=== PATIENT | male | born 1960 | race Caucasian/White ===

== ENCOUNTER 2025-01-09 05:39 | Outpatient (REF) | payer MEDICARE, SELFPAY ==
[2025-01-09 05:45] LABS: MANUAL DIFF FLAG NO
--- OUTSIDE RECORDS SUMMARY | 2025-01-09 05:46 | XMS_ITS | Encounter Summary ---
Author Organization [employer] Address [address] [facility] 7t [place] [address] Care Team Providers Care Inspector Final Assembly Conveyor Line Name Role Phone Unavailable Primary Care Provider Unavailabl e Reason for Visit * Reason Onset Date Comments medication 11/19/2022 Encounter Details Date Type Department Care Team (Late st Contact Info) Description 11/19/2022 Telephone [facility] [address] [place] [address] Eduard Maya, NICOLAS [address] [place] [address] medication Social History Tobacco Use Types Packs/Day Years Used Date Smoking Tobacco: Never Smokeless Tobacco: Never Sex and Gender Information Value Date Recorded Sex Assigned at Male 01/18/2022 10:23 AM EDT Legal Sex Male 10:23 AM EDT Gender Identity Male 01/18/2022 10:23 AM EDT Sexual Orientation Maxwell 11/18/2022 11 :57 AM EDT documented as of this encounter Miscellaneous Notes * Telephone Encounter - Blanca Marroquin - 11/19/2022 11:40 AM EDT Patient was seen yesterday 11/[address] [place] Mack is not in today. The script for the toothpaste cannot be filled at the pharmacy patient had chosen at [address] That is a specialtypharmacy. He would like the script to be re sent to [facility] pharmacy. Can you pls help? documented in this encounter Plan of Treatment Not on file documented as of this encounter Visit Diagnoses Not on filedocumented in this encounter
--- OUTSIDE RECORDS SUMMARY | 2025-01-09 05:46 | XMS_ITS | Encounter Summary ---
Author Organization [email or web address] Address 75 [facility] 7t [place] [address] Care Team Providers Care Gynecologist Name Role Phone Unavailable Primary Care Provider Unavailabl e Encounter Details Date Type Department Care Team (Latest Contact Info) Description 10/09/2020 Abstract [facility] CONVERSIONS Dental, Provider, DDS Social History Tobacco Use Types Packs/Day Years Used Date Smoking Tobacco: Never Assessed Sex and Gender Information Value Date Recorded Sex Assigned at Male 01/18/2022 10:23 AM EDT Legal Sex Male 10:23 AM EDT Gender Identity Male 01/18/2022 10:23 AM EDT Sexual Orientation Maxwell 11/18/2022 11 :57 AM EDT documented as of this encounter Plan of Treatment Not on file documented as of this encounter Visit Diagnoses Not on filedocumented in this encounter
--- OUTSIDE RECORDS SUMMARY | 2025-01-09 05:46 | XMS_ITS | Encounter Summary ---
Author Organization [employer] Address [address] [facility] [address] 7t [place] [address] Care Team Providers Care Turkey Pinner Name Role Phone Unavailable Primary Care Provider Unavailabl e Encounter Details Date Type Department Care Team (Latest Contact Info) Description 06/13/[address] [facility] CONVERSIONS Dental, Provider, DDS Social History [...]
--- OUTSIDE RECORDS SUMMARY | 2025-01-09 05:46 | XMS_ITS | Clinical Summary ---
Author Organization [employer] Address 75 [facility] 7t [place] [address] Care Team Providers Care Community Service Worker Name Role Phone Unavailable Primary Care Provider Unavailabl e Allergies Active Allergy Reactions Criticality Noted Date Comments Testosterone 11/18/2022 Patch Medications ARIPiprazole (Abilify) 10 MG tablet 3 Active aspirin 81 MG EC tablet Take 1 tablet by mouth in the morning. Active atorvastatin (Lipitor) 40 MG tablet 3 Active buPROPion XL (Wellbutrin XL) 300 MG 24 hr tablet 3 Active clotrimazole (Lotrimin) 1 % cream 3 Active Diclofenac Sodium 1 % gel 3 Active Synjardy 12.5-1000 MG 3 Active Lantus SoloStar 100 UNIT/ML pen 3 Active lisinopril 2.5 MG tablet 3 Active LORazepam (Ativan) 0.5 MG tablet 3 Active metoprolol tartrate (Lopressor) 25 MG tablet 3 Active Multiple Vitamins-Minera ls (Vitamin D3 Complete) tablet Active testosterone cypionate (Depo-Testoster one) 200 MG/ML injection 3 Active Mounjaro 2.5 MG/0.5ML solution pen-injector 3 Active venlafaxine XR (Effexor XR) 150 MG 24 hr capsule 3 Active zolpidem (Ambien) 10 MG tablet 3 Active Sodium Fluoride (PreviDent 5000 Booster Plus) 1.1 % paste Use pea size amount on toothbrush at night before bedtime. Do not rinse just spit out and no eating. 112 g 3 3 Active Sodium Fluoride (PreviDent 5000 Booster Plus) 1.1 % paste Use pea sized amount on the tooth brush, brush thoroughly twice daily. Spit, do not rinse. 112 g 3 3 Active Sodium Fluoride (PreviDent 5000 Booster Plus) 1.1 % paste [place] with pea sized amount of tothpaste, spit but don't rinse out. 112 g 3 4 Active omeprazole (PriLOSEC) [address] capsule Take 40 mg by mouth. 5 Active tamsulosin (Flomax) 0.4 MG 24 hr capsule 5 Active hydrOXYzine HCl (Atarax) 25 MG tablet Take 25 mg by mouth. 5 Active methylphenidate ER (Metadate ER) 20 MG CR tablet Take 20 mg by mouth. 5 Active finasteride (Proscar) 5 MG tablet Take 5 mg by mouth. 5 Active Active Problems Problem Noted Date Diagnosed Date Atherosclerosis of coronary artery 11/15/2024 Depressive disorder 11/15/2024 Overview (11/15/2024): care plan 11/10/2012 Class 1 obesity 11/15/2024 Benign prostatic hyperplasia 11/15/2024 Atrial fibrillation (CMS/HCC) 11/15/2024 Dysphagia 11/15/2024 Eczema 11/15/2024 Extrapyramidal symptom 11/15/2024 Follow-up for resolved condition 11/15/2024 Gynecomastia 11/15/2024 Insomnia 11/15/2024 Oral herpes simplex infection 11/15/2024 Primary hypogonadism in male 11/15/2024 Sleep apnea 11/15/2024 Tubular adenoma of colon 11/15/2024 Type 2 diabetes mellitus 11/15/2024 Severe obesity (BMI 35.0-39.9) with comorbidity (CMS/HCC) 11/15/2024 Intertrigo 03/27/2024 Heart murmur 04/13/2013 Heart disease 04/13/2013 Lump or mass in breast 03/03/2010 Anemia 08/12/2006 Encounters Date Type Department Care Team Description 11/15/2024 2:00 PM EDT Office Visit [facility] D[facility] [address] [place] [id number] Isi Kang BDS Dental caries (Primary Dx) from Last 3 Months Social History Tobacco Use Types Packs/Day Years Used Date Smoking Tobacco: Never Smokeless Tobacco: Never Tobacco Cessation:Counseling Given: Not Answered Sex and Gender Information Value Date Recorded Sex Assigned at Male 01/18/2022 10:23 AM EDT Legal Sex Male 10:23 AM EDT Gender Identity Male 01/18/2022 10:23 AM EDT Sexual Orientation Maxwell 11/18/2022 11 :57 AM EDT Last Filed Vital Signs Vital Sign Reading Time Taken Comments Blood Pressure 124/70 11/15/2024 2:07 PM EDT Pulse 66 11/15/2024 2:07 PM EDT Temperature - - Respiratory Rate - - Oxygen Saturation - - Inhaled Oxygen Concentration - - Weight - - Height - - Body Mass Index - - Plan of Treatment Health Maintenance Due Date Last Done Comments CT Colonography 1959 Colonoscopy 1959 Colorectal Cancer Screening 1959 Depression Screening 1959 Diabetes: Hemoglobin A1C 1959 FIT DNA/Cologuard 1959 FIT 1959 FOBT 1959 Lipid Panel 1959 SDOH Screening 1959 Sigmoidoscopy 1959 Diabetes: Foot Exam 10/17/1969 Eye Exam 10/17/1969 Alcohol/Substance Use Screening 1971 Hepatitis C Screening 10/17/1977 Diabetes: Urine Protein Screening 10/17/1978 DTaP/Tdap/Td Vaccines (1 - Tdap) 10/27/2018 10/26/2018 RSV Patients and Patients Aged 60 years or older (1 - Risk 60-74 years 1-dose series) 2019 Dental X-Ray: Full Mouth 12/19/2023 12/17/2020, 05/0 06/2016 Dental Oral Exam 08/29/2024 02/28/2024, , 10/09/2020, Additional history exists Dental Prophylaxis 08/29/2024 02/28/2024, 0 06/20/2023, 11/18/2022, Additional history exists COVID-19 Vaccine ( season) 2024 12/06/2023, 03/29/2023, 12/09/2021, Additional history exists Influenza Vaccine (#1) 2024 4, 02/17/2023, 02/17/2023, Additional history exists Dental X-Ray: Bitewings 02/28/2025 02/28/20 24, 11/18/2022, 10/09/2020, Additional history exists Tobacco Screening 11/15/2025 11/15/2024 Pneumococcal Vaccine: 50+ Years (3 of 3 - PCV20 or PCV21) 04/08/2027 04/08/2022, 01/30/2008 Zoster Vaccines Completed 09/01/2021, 01/20, 06/13/2012 HIB Vaccines Aged Out No longer eligi ble based on patient's age to complete this topic HPV Vaccines Aged Out No longer eligi ble based on patient's age to complete this topic Hepatitis A Vaccines Aged Out No long er eligible based on patient's age to complete this topic Hepatitis B Vaccines Aged Out No long er eligible based on patient's age to complete this topic IPV Vaccines Aged Out No longer eligi ble based on patient's age to complete this topic Meningococcal B Vaccine Aged Out No l onger eligible based on patient's age to complete this topic Meningococcal Vaccine Aged Out No sharon chapin eligible based on patient's age to complete this topic RSV under 20 months Aged Out No longe r eligible based on patient's age to complete this topic Rotavirus Vaccines Aged Out No longer eligible based on patient's age to complete this topic Procedures Procedure Name Priority Date/Time Associated Diagnosis Comments 15 ML(V) RESIN-BASED COMPOSITE - 2 SURF, POSTERIOR Routine 11/15/2024 2:00 PM EDT PROPHYLAXIS - ADULT Routine 02/28/2024 1 :00 PM EST BITEWINGS - 4 RADIOGRAPHIC IMAGES Routine 02/28/2024 1:00 PM EST PERIODIC ORAL EVALUATION - ESTABLISHED PATIENT Routine 02/28/2024 1:00 PM EST PANORAMIC RADIOGRAPHIC IMAGE Routine 12/17/2020 12:00 AM EDT from Last 3 Months or Most Recently Relevant to Health Maintenance Insurance DENTAL - [facility]
--- OUTSIDE RECORDS SUMMARY | 2025-01-09 05:46 | XMS_ITS | Encounter Summary ---
Author Organization [employer] Address [address] [facility] 7t [place] [address] Care Team Providers Care Safety Equipment Tester Name Role Phone Unavailable Primary Care Provider Unavailabl e Encounter Details Date Type Department Care Team (Late st Contact Info) Description 12/24/2022 Abstract [facility] ADULT DENTAL [address] [place] [address] Jd Jimenez, NICOLAS [address] [place] [address] Social History Tobacco Use Types Packs/Day Years [...]
--- OUTSIDE RECORDS SUMMARY | 2025-01-09 05:46 | XMS_ITS | Encounter Summary ---
Author Organization [employer] Address [address] [facility] 7t [place] [address] Care Team Providers Care Fireworks Assembly Supervisor Name Role Phone Unavailable Primary Care Provider Unavailabl e Encounter Details Date Type Department Care Team (Late st Contact Info) Description 01/21/2023 Abstract [facility]ULT D[facility] [address] [place] [address] Eduard Maya, DDS [address] [facility] [place] [address] Social History Tobacco Use Types Packs/Day Years [...]
--- OUTSIDE RECORDS SUMMARY | 2025-01-09 05:46 | XMS_ITS | Encounter Summary ---
Author Organization [employer] Address [address] [facility] 7t [place] [address] Care Team Providers Care Utilities Equipment Repairer Name Role Phone Unavailable Primary Care Provider Unavailabl e Reason for Visit * Reason Onset Date Comments appt slip 01/11/2024 Encounter Details Date Type Department Care Team ([facility] st Contact Info) Description 01/11/2024 Telephone [facility] DENTAL [address] [place], [place] [phone] Chandni Castellano [address] [place], [place] [phone] appt slip Social History Tobacco Use Types Packs/Day Years [...] * Telephone Encounter - Blanca Marroquin - 01/11/2024 11:59 AM EDT Patient would like appt slip mailed to his home for appt scheduled. documented in this encounter Plan of Treatment Not on file documented as of this encounter Visit Diagnoses Not on filedocumented in this encounter
[2025-01-09 06:26] LABS: Hematocrit 33.8 % (42.0-52.0); Hemoglobin 11.2 g/dl (14.0-18.0); Imm Gran Abs Auto 0.02 X10*3/uL (0.00-0.03); Imm Gran Pct Auto 0.3 % (0.0-0.4); Lymphocytes Absolute Auto 2.0 X10*3/uL (1.2-4.9); Mean Corpuscular HGB Conc 33.1 g/dl (31.0-36.0); Mean Corpuscular Hemoglobin 30.7 pg (27.0-33.0); Mean Corpuscular Volume 92.6 fL (80.0-98.0); NRBC Abs Auto 0.000 X10*3/uL (0.0-0.012); NRBC Pct Auto 0.0 /100WBC (0.0-0.2); Platelet Count 220 X10*3/uL (160-400); Red Blood Count 3.65 X10*6/uL (4.60-5.80); White Blood Count 7.5 X10*3/uL (4.8-10.8)
[2025-01-09 06:33] LABS: Hemoglobin A1C 114.5474 umol/L
[2025-01-09 06:36] LABS: Alanine Aminotransferase 36 U/L (0-40); Albumin Level 3.7 g/dL (3.5-5.0); Alkaline Phosphatase 62 U/L (39-117); Anion Gap 13 (12-20); Aspartate Amino Transferase 42 U/L (5-37); Blood Urea Nitrogen 15 mg/dL (9-16); Calcium 8.9 mg/dL (8.4-10.2); Carbon Dioxide 22 mmol/L (22-29); Chloride 107 mmol/L (96-108); Estimated Glomerular Filt Rate > 60; Potassium 3.9 mmol/L (3.3-5.1); Sodium 138 mmol/L (135-145); Total Protein 6.8 g/dL (6.5-8.0)
== END 2025-01-09 05:40 | disposition home or self-care (01) ==
LOC: HO.MMNH1L 05:39
PROVIDERS: Visit Provider Physician Assistant Medical
DX: Z13.0 Encounter for screening for diseases of the blood and blood-forming organs and certain disorders involving the immune mechanism (principal); Z13.1 Encounter for screening for diabetes mellitus
CPT/HCPCS: 36415; 80053; 83036; 85025

== ENCOUNTER 2025-01-11 14:20 | Outpatient (REF) | payer MEDICARE, SELFPAY ==
[2025-01-11 14:28] LABS: Appearance Urine Clear; Glucose Urine UA 500 mg/dL (Negative); PH 5.5 (5.0-9.0); Specific Gravity - Urine 1.025 (1.005-1.025); UMIC TRIGGER UA YES
--- OUTSIDE RECORDS SUMMARY | 2025-01-11 16:18 | XMS_ITS | Encounter Summary ---
Author Organization [employer] Address [address] [facility] [address]t [place] [address] Care Team Providers Care Hot Baller Name Role Phone Unavailable Primary Care Provider Unavailabl e Encounter Details Date Type Department Care Team (Latest Contact Info) Description 10/09/2020 Abstract [facility] CONVERSIONS Dental, Provider, DDS Social History [...]
--- OUTSIDE RECORDS SUMMARY | 2025-01-11 16:18 | XMS_ITS | Encounter Summary ---
Author Organization [employer] Address [address] [facility] 7t [place] [address] Care Team Providers Care Casting Technician Name Role Phone Unavailable Primary Care Provider Unavailabl e Reason for Visit * Reason Onset Date Comments medication 11/19/2022 Encounter Details Date Type Department Care Team (Late st Contact Info) Description 11/19/2022 Telephone [facility] ADULT DENTAL [address] [place] [address] Eduard Maya, NICOLAS [address] [place] [address] medication Social History Tobacco Use Types Packs/Day [...] EDT Patient was seen yesterday 11/[address] [place] Mack is not in today. The script for the toothpaste cannot be filled at the pharmacy patient had chosen at [address] That is a specialtypharmacy. He would like the script to be re sent to [facility] pharmacy. Can you pls help? documented in this encounter Plan of Treatment Not on file documented as of this encounter Visit Diagnoses Not on filedocumented in this encounter
--- OUTSIDE RECORDS SUMMARY | 2025-01-11 16:18 | XMS_ITS | Encounter Summary ---
Author Organization [employer] Address [address] [facility] [address]t [place] [address] Care Team Providers Care Veterinary Surgeon Name Role Phone Unavailable Primary Care Provider Unavailabl e Reason for Visit * Reason Onset Date Comments appt slip 01/11/2024 Encounter Details Date Type Department Care Team ([facility] st Contact Info) Description 01/11/2024 Telephone [facility] D[facility] [address] [place], [place] [phone] Chandni Castellano [address] [place], [place] [phone] appt slip Social History Tobacco Use Types [...]
--- OUTSIDE RECORDS SUMMARY | 2025-01-11 16:18 | XMS_ITS | Clinical Summary ---
Author Organization [employer] Address [address] [facility] [address]t [place] [address] Care Team Providers Care Talent Scout Name Role Phone Unavailable Primary Care Provider [...] (PreviDent 5000 Booster Plus) 1.1 % paste [place] with pea sized amount of tothpaste, spit [...] Description 11/15/2024 2:00 PM EDT Office Visit [facility] DENTAL [address] [place] [id number] Isi Kang BDS Dental caries (Primary Dx) [...] Relevant to Health Maintenance Insurance DENTAL - [facility]
--- OUTSIDE RECORDS SUMMARY | 2025-01-11 16:18 | XMS_ITS | Encounter Summary ---
Author Organization [employer] Address [address] [facility] 7[address] [place] [address] Care Team Providers Care Income Tax Administrator Name Role Phone Unavailable Primary Care Provider Unavailabl e Encounter Details Date Type Department Care Team (Late st Contact Info) Description 12/24/2022 Abstract [facility] [address] [place] [address] Jd Jimenez, NICOLAS [address] [place] [address] Social History Tobacco Use Types Packs/Day Years [...]
--- OUTSIDE RECORDS SUMMARY | 2025-01-11 16:18 | XMS_ITS | Encounter Summary ---
Author Organization [employer] Address [address] [facility] [address] [place] [address] Care Team Providers Care Leather Scrubber Name Role Phone Unavailable Primary Care Provider Unavailabl e Encounter Details Date Type Department Care Team (Latest Contact Info) Description 06/13/2018 Abstract [facility] CONVERSIONS Dental, Provider, DDS Social History Tobacco [...]
--- OUTSIDE RECORDS SUMMARY | 2025-01-11 16:18 | XMS_ITS | Encounter Summary ---
Author Organization [employer] Address [address] [facility] 7t [place] [address] Care Team Providers Care Industrial Green Systems Designer Name Role Phone Unavailable Primary Care Provider Unavailabl e Encounter Details Date Type Department Care Team (Late st Contact Info) Description 01/21/2023 Abstract [facility] ADULT DENTAL [address] [place] [address] Eduard Maya, DDS [address] [facility] [place] [address] Social History Tobacco Use Types Packs/Day Years [...]
== END 2025-01-11 14:21 | disposition home or self-care (01) ==
LOC: HO.MMNH1L 14:20
PROVIDERS: Visit Provider Physician Assistant Medical
DX: R30.0 Dysuria (principal); R29.6 Repeated falls
CPT/HCPCS: 81001; 87086; 87088; 87186

== ENCOUNTER 2025-01-14 18:08 | Inpatient (IN) | payer OTHER, SELFPAY ==
[2025-01-14] VITALS (12 sets, daily range): BP systolic 94–148; BP diastolic 39–78; PULSE 82–91; RESP 18–31; TEMP 36.8–39.6; O2SAT 89–100; BMI 30.6
--- NOTE | ~2025-01-14 | XR_ITS ---
CLINICAL HISTORY: sob 1 view chest x-ray Comparison: None provided Findings: Low lung volumes with mild atelectasis. Mild emphysematous changes suggested. No lobar consolidation. No pneumothorax or pleural effusion. Borderline cardiomegaly accentuated by AP technique. Degenerative changes include the partially imaged shoulders. IMPRESSION: No consolidation. This document has been electronically signed by: Royce Crump MD on 01/14/2025 19:43:03
--- NOTE | ~2025-01-14 | CT_ITS ---
CLINICAL HISTORY: pe rule out CT angiography chest with contrast. With MIP MPR Postprocessing. Comparison: Chest x-ray from 01/14/2025. Findings: No central pulmonary embolism. Mild mediastinal fluid and lipomatosis noted. Mild-moderate cardiomegaly with multi chamber enlargement of the heart. Small mediastinal lymph nodes are likely reactive. Trace pleural effusions. Bibasilar atelectasis/pneumonitis superimposed on chronic lung disease, scarring, and emphysematous changes of the both lungs. No pneumothorax. Mild wall thickening of the imaged esophagus is nonspecific. Please refer to separate report for included imaged abdomen. Degenerative changes include the imaged shoulders and imaged spine. Bridging osteophytes are multifocal. Mild/minimal vertebral height losses appear old/chronic and accentuated by Schmorl's nodes. IMPRESSION: 1. No central pulmonary embolism. 2. Trace pleural effusions with bibasilar atelectasis/pneumonitis. This document has been electronically signed by: Royce Crump MD on 01/15/2025 02:27:03
--- NOTE | ~2025-01-14 | CT_ITS ---
CLINICAL HISTORY: sepsis CT abdomen and pelvis with contrast Comparison: None provided Findings: Trace pleural effusions with bibasilar atelectasis/pneumonitis. Mild cardiomegaly partially imaged. Mild fat deposition of the liver. Gallbladder is distended. Adrenal glands are unremarkable accounting for motion artifacts. Mild/borderline splenomegaly, with small splenule noted. Moderate volume loss of the pancreas. No hydronephrosis. Bilateral perinephric stranding is nonspecific. Multiple cystic lesions too small to characterize including 6 mm lesion in the right kidney (51 of series 8). Peripheral low-density of the upper pole right kidney may reflect manifestations of the pyelonephritis given accentuated into cortex surface. Small mesenteric and retroperitoneal lymph nodes are nonspecific and likely reactive. No small bowel obstruction. Severe stool burden is present, including in the cecum. Mild wall thickening of the large intestine is nonspecific by CT. Differential considerations include mild colitis including sigmoid colon given adjacent fluid. Imaged appendix is within normal limits (46 of 18). Moderate wall thickening of the imaged urinary bladder is nonspecific and may reflect cystitis. Gas and Knox catheter noted in the urinary bladder. The prostate gland measures 4.4 cm transverse. Mild free fluid in the pelvis present. Osseous pelvis deformities appear old/chronic. Degenerative changes of the hips, pubic symphysis, SI joints, and spine. Facet arthropathy is multifocal, including severe in the lumbar spine. Grade 1 anterolisthesis of the L4-L5. Mild vertebral height losses appear old/chronic and accentuated by multifocal Schmorl's nodes. IMPRESSION: 1. Wall thickening of the urinary bladder is nonspecific. 2. Bilateral perinephric stranding is nonspecific. Pyelonephritis is considered, particularly in the upper pole of the right kidney. 3. Severe stool burden This document has been electronically signed by: Royce Crump MD on 01/15/2025 02:27:05
--- NOTE | 2025-01-14 18:27 | ECG_ITS ---
Test Reason : SYNCOPE Blood Pressure : */* mmHG Vent. Rate : 87 BPM Atrial Rate : 87 BPM P-R Int : 208 ms QRS Dur : 84 ms QT Int : 374 ms P-R-T Axes : 62 18 54 degrees QTcB Int : 450 ms Normal sinus rhythm Normal ECG No previous ECGs available Referred By: Generic ED Physician Electronically Signed By: HU SORIANO
[2025-01-14 18:33] LABS: Glucose, Whole Blood 159 mg/dL (60-115)
--- NOTE | 2025-01-14 18:35 | ED.GENADULT ---
[facility] - General Adult General Chief complaint: Syncope Stated complaint: N/V, uti, ?sepis Time Seen by Provider: 01/14/25 18:35 Source: patient Mode of arrival: ambulatory Limitations: no limitations History of Present Illness ED Provider: Dr. Bryan [facility] narrative: This is a 64-year-old male history of diabetes presented hospital today for syncopal episode at [facility]. Patient was recently admitted to [facility] for a fall. He was discharged to [facility] for rehab. Patient was found to be febrile. Diaphoretic. Patient is brought to the ER for evaluation. He has sign of UTI. Patient appear to be diaphoretic and pale on arrival. No sign of hypoxia. Patient is on room air. Related Data Allergies Allergy/AdvReac Type Severity Reaction Status Date / Time No Known Allergies Allergy Verified 01/14/25 18:26 Review of Systems Review of Systems: Pertinent review of systems as mentioned in HPI. All other system otherwise negative. [facility] Past Medical History [facility] Narrative: Medical history as mentioned in [facility] Social History Social History Smoked in Last 30 Days: No Use of substances other than those prescribed or required for medical reasons: No Advance Directives: No Advance Directives Information Provided: No Physical Exam ED Exam Exam: General: Appears diaphoretic and fatigue Head: Normacephalic, atraumatic ENT: oral mucosa moist, neck supple, no tracheal deviation Cardiovascular: regular rate, regular rhythm, no murmurs, rubbing, gallops Respiratory: CTAB, no wheeze, rales, rhonchi Gastrointestinal: Soft, non distended, non tender, non guarding Extremities: Trace pitting edema Neurological: Awake and alert, no facial droop noted Skin: Warm and diaphoretic, consistent with fever likely Psychiatric: Appropriate mood and thoughts Vital Signs: Vital Signs - 24 hr 01/14/25 18:23 01/14/25 18:41 01/14/25 18:41 Temperature 103.3 F H 102.6 F H Pulse Rate 88 84 Respiratory Rate 24 H 28 H Blood Pressure 102/39 L 108/43 L Pulse Oximetry 93 97 97 Oxygen Delivery Method Room Air Nasal Cannula Nasal Cannula Oxygen Flow Rate 2 01/14/25 19:13 01/14/25 20:03 01/14/25 20:09 Temperature 101.1 F H 98.3 F 99.7 F Pulse Rate 91 87 88 Respiratory Rate 20 31 H 28 H Blood Pressure 97/46 L 103/53 L 98/45 L Pulse Oximetry 91 L 97 98 Oxygen Delivery Method Nasal Cannula Nasal Cannula Nasal Cannula Oxygen Flow Rate 2 2 2 01/14/25 20:15 01/14/25 20:28 01/14/25 20:38 Temperature 99.7 F 99.5 F Pulse Rate 88 88 85 Respiratory Rate 28 H 18 Blood Pressure 115/57 L 94/52 L 102/57 L Pulse Oximetry 100 94 Oxygen Delivery Method Nasal Cannula Nasal Cannula Oxygen Flow Rate 2 2 01/14/25 21:17 01/14/25 21:26 Temperature 99.1 F 99.3 F Pulse Rate 88 84 Respiratory Rate 18 19 Blood Pressure 99/56 L 105/53 L Pulse Oximetry 96 100 Oxygen Delivery Method Room Air Room Air Oxygen Flow Rate BMI result Body Mass Index 30.6 Medications Administered Generic Name Dose Route Start Last Admin Trade Name Freq PRN Reason Stop Dose Admin Vancomycin HCl 2,000 mg in 500 mls @ 250 mls/hr 01/14/25 21:20 01/14/25 21:47 Vancomycin/Ns IV 01/14/25 23:19 250 mls/hr ONCE ONE Administration Discontinued Medications Generic Name Dose Route Start Last Admin Trade Name Freq PRN Reason Stop Dose Admin Acetaminophen 975 mg 01/14/25 19:03 01/14/25 19:12 Acetaminophen 325 Mg Tablet PO 01/14/25 19:04 975 mg ONCE ONE Administration Baclofen 5 mg 01/14/25 22:19 01/14/25 22:24 Baclofen 10 Mg Tablet PO 01/14/25 22:20 5 mg ONCE ONE Administration Hydrocortisone Sodium Succinate 100 mg 01/14/25 21:20 01/14/25 21:35 Hydrocortisone Sod Succ/Pf 100 Mg Vial IVPUSH 01/14/25 21:21 100 mg ONCE ONE Administration Ceftriaxone Sodium 2 gm/ 50 mls @ 100 mls/hr 01/14/25 18:36 01/14/25 19:13 Sodium Chloride IV 01/14/25 19:05 Infused ONCE ONE Infusion Sodium Chloride 3,066 mls @ 3,066 mls/hr 01/14/25 19:18 01/14/25 20:16 Ns 30 ml/kg infuse over 1 hr (3066 ml) 01/14/25 20:17 Infused IV Infusion .Q1H STA Sodium Chloride 1,000 mls @ 999 mls/hr 01/14/25 20:45 01/14/25 21:16 Ns IV 01/14/25 21:45 Infused .Q1H1M XAVIER Infusion Piperacillin Sod/Tazobactam 100 mls @ 200 mls/hr 01/14/25 21:20 01/14/25 21:47 Sod 4.5 gm/ Sodium Chloride IV 01/14/25 21:49 Infused ONCE ONE Infusion Medical Decision Making Medical Decision Making [facility] Narrative: 64-year-old male history of diabetes presented hospital today for evaluation of syncopal episode. Suspect patient likely has sepsis from UTI. A sepsis workup will be obtained including CBC chemistry blood culture lactic acid. UA back on 01/11 did show signs of UTI. He has not complain of any coughing at this time. He is not hypoxic on room air. Patient does have slight leukocytosis at 11, he does have 8% bands. He does have signs of NILSA. Patient's creatinine is 1.58. Baseline at 0.68. Nurse did do a bladder scan. Patient was retaining over a L of fluid. Knox catheter will be placed. We will plan to give patient a stress dose IV hydrocortisone. Blood pressure is maintain map above 65 at this time. Continue to monitor the patient does time. Discussed the case with the hospitalist who recommends CT imaging to further assess for any other signs of infection due to degree of his sepsis Patient will be admitted to the hospital. We will re-attempt CT imaging the patient was having significant back spasm on CT table. Baclofen will be given. Differential Diagnosis Differential Diagnoses: The differential diagnosis associated with the presentation includes Sepsis, UTI, pneumonia, BPH, urinary retention Consult Healthcare Provider Management of the patient was discussed with: Hospitalist Lab Data [facility] Lab Attestation statement: I reviewed the patient's lab results. 01/14/25 18:39 01/14/25 18:39 Labs: Lab Results 01/14/25 01/14/25 01/14/25 Range/Units 18:19 18:39 18:43 WBC 11.6 H (4.8-10.8) X10*3/uL RBC 3.99 L (4.60-5.80) X10*6/uL Hgb 12.1 L (14.0-18.0) g/dl Hct 36.1 L (42.0-52.0) % MCV 90.5 (80.0-98.0) fL MCH 30.3 (27.0-33.0) pg MCHC 33.5 (31.0-36.0) g/dl RDW 14.2 (11.0-16.0) % Plt Count 236 (160-400) X10*3/uL MPV 9.3 L (9.4-12.4) fL Immature Gran % (Auto) Cancelled Neut % (Auto) Cancelled Lymph % (Auto) Cancelled [place] % (Auto) Cancelled Eos % (Auto) Cancelled Baso % (Auto) Cancelled Lymph # (Auto) Cancelled [place] # (Auto) Cancelled Eos # (Auto) Cancelled Baso # (Auto) Cancelled Abs Immat Gran (auto) Cancelled Absolute Neuts (auto) Cancelled Absolute Nucleated RBC 0.000 (0.0-0.012) X10*3/uL Nucleated RBC % (auto) 0.0 (0.0-0.2) /100WBC Neutrophils % (Manual) 85 H (45-73) % Band Neutrophils % 8 H (3-5) % Lymphocytes % (Manual) 3 L (20-40) % Monocytes % (Manual) 2 (2-11) % Metamyelocytes % 2 % Abs Neuts (Manual) 10.8 H (2.0-8.3) X10*3/uL Lymphocytes # (Manual) 0.3 L (1.2-4.9) X10*3/uL Monocytes # (Manual) 0.2 (0.1-1.2) X10*3/uL Metamyelocytes # 0.2 X10*3/uL Toxic Vacuolation PRESENT Platelet Estimate NORMAL (NORMAL) Plt Morphology Comment NORMAL RBC Morphology NOTED Macrocytosis 1+ (5-14) /OIF Smear Tech's Comments MANUAL DIFF PT 13.7 H (10.9-12.4) SEC INR 1.2 H (0.9-1.1) VBG pH (7.32-7.43) VBG pCO2 mmHg VBG pO2 mmHg VBG HCO3 (22-26) mmol/L VBG O2 Saturation % VBG Base Excess mmol/L Sodium 139 (135-145) mmol/L Potassium 3.8 (3.3-5.1) mmol/L Chloride 107 (96-108) mmol/L Carbon Dioxide 22 (22-29) mmol/L Anion Gap 14 (12-20) BUN 21 H (9-16) mg/dL Creatinine 1.58 H (0.5-1.4) mg/dL Estim Creat Clear Calc 57.6 Estimated GFR 44 POC Glucose 159 H (60-115) mg/dL Random Glucose 152 H (60-115) mg/dL Lactic Acid 1.8 (0.5-2.0) mmol/L Calcium 8.9 (8.4-10.2) mg/dL Magnesium 2.0 (1.6-2.6) mg/dL Total Bilirubin 1.0 (0.0-1.0) mg/dL AST 45 H (5-37) U/L ALT 31 (0-40) U/L Alkaline Phosphatase 88 (39-117) U/L Troponin I High Sens 103.1 H* (<3.5-35.0) ng/L Total Protein 7.0 (6.5-8.0) g/dL Albumin 3.8 (3.5-5.0) g/dL Urine Color Urine Appearance Urine pH (5.0-9.0) Ur Specific [place] (1.005-1.025) Urine Protein (Neg-Trace) mg/dL Urine Glucose (UA) (Negative) mg/dL Urine Ketones (Negative) mg/dL Urine Blood (Negative) Urine Nitrite (Negative) Ur Leukocyte Esterase (Negative) Urine RBC (0-2) /HPF Urine WBC (0-5) /HPF Ur Squamous Epith Cells (0-2) /HPF Urine Bacteria (None Seen) Hyaline Casts (0-2) /LPF COVID-19 (JAMARCUS) Negative (Negative) COVID-19 Clin Com See Note Influenza Type A (PEYTON) Negative (Negative) Influenza Type B (PEYTON) Negative (Negative) Influenza A & B Note See Note 01/14/25 01/14/25 01/14/25 Range/Units 18:47 19:45 21:44 WBC (4.8-10.8) X10*3/uL RBC (4.60-5.80) X10*6/uL Hgb (14.0-18.0) g/dl Hct (42.0-52.0) % MCV (80.0-98.0) fL MCH (27.0-33.0) pg MCHC (31.0-36.0) g/dl RDW (11.0-16.0) % Plt Count (160-400) X10*3/uL MPV (9.4-12.4) fL Immature Gran % (Auto) Neut % (Auto) Lymph % (Auto) [place] % (Auto) Eos % (Auto) Baso % (Auto) Lymph # (Auto) [place] # (Auto) Eos # (Auto) Baso # (Auto) Abs Immat Gran (auto) Absolute Neuts (auto) Absolute Nucleated RBC (0.0-0.012) X10*3/uL Nucleated RBC % (auto) (0.0-0.2) /100WBC Neutrophils % (Manual) (45-73) % Band Neutrophils % (3-5) % Lymphocytes % (Manual) (20-40) % Monocytes % (Manual) (2-11) % Metamyelocytes % % Abs Neuts (Manual) (2.0-8.3) X10*3/uL Lymphocytes # (Manual) (1.2-4.9) X10*3/uL Monocytes # (Manual) (0.1-1.2) X10*3/uL Metamyelocytes # X10*3/uL Toxic Vacuolation Platelet Estimate (NORMAL) Plt Morphology Comment RBC Morphology Macrocytosis /OIF Smear Tech's Comments PT (10.9-12.4) SEC INR (0.9-1.1) VBG pH 7.45 H (7.32-7.43) VBG pCO2 32 mmHg VBG pO2 106 mmHg VBG HCO3 23 (22-26) mmol/L VBG O2 Saturation 99.0 % VBG Base Excess -0.2 mmol/L Sodium (135-145) mmol/L Potassium (3.3-5.1) mmol/L Chloride (96-108) mmol/L Carbon Dioxide (22-29) mmol/L Anion Gap (12-20) BUN (9-16) mg/dL Creatinine (0.5-1.4) mg/dL Estim Creat Clear Calc Estimated GFR POC Glucose (60-115) mg/dL Random Glucose (60-115) mg/dL Lactic Acid (0.5-2.0) mmol/L Calcium (8.4-10.2) mg/dL Magnesium (1.6-2.6) mg/dL Total Bilirubin (0.0-1.0) mg/dL AST (5-37) U/L ALT (0-40) U/L Alkaline Phosphatase (39-117) U/L Troponin I High Sens 124.7 H* (<3.5-35.0) ng/L Total Protein (6.5-8.0) g/dL Albumin (3.5-5.0) g/dL Urine Color Dark Yellow Urine Appearance Clear Urine pH 5.5 (5.0-9.0) Ur Specific [place] 1.015 (1.005-1.025) Urine Protein Negative (Neg-Trace) mg/dL Urine Glucose (UA) Negative (Negative) mg/dL Urine Ketones Negative (Negative) mg/dL Urine Blood Moderate (2+) H (Negative) Urine Nitrite Positive H (Negative) Ur Leukocyte Esterase Moderate (2+) H (Negative) Urine RBC 6-10 H (0-2) /HPF Urine WBC 21-50 H (0-5) /HPF Ur Squamous Epith Cells 0-2 (0-2) /HPF Urine Bacteria 2+ (None Seen) Hyaline Casts 0-2 (0-2) /LPF COVID-19 (JAMARCUS) (Negative) COVID-19 Clin Com Influenza Type A (PEYTON) (Negative) Influenza Type B (PEYTON) (Negative) Influenza A & B Note Independent Interpretation I performed an independent interpretation of an: CT Scan Radiology Impression Discussion of test interpretation with radiology: I have reviewed the radiologist's reading. Critical Care Time Critical Care Time Critical Care Time: Yes Total Critical Care Time: 40 Attestation: Time is exclusive of separately billable procedures. Time includes: direct patient care, patient reassessment, coordination of patient care, interpretation of data (laboratory data, pulse oximetry, arterial blood gases and chest xrays), review of patient's medical records, medical consultation and documentation of patient care. Procedures excluded from critical care time: central intravenous line placement and electrocardiography. Discharge Plan Discharge Clinical Impression: Sepsis, UTI (urinary tract infection) Patient Disposition: Admitted As Inpatient
[2025-01-14 18:48] LABS: Hematocrit 36.1 % (42.0-52.0); Hemoglobin 12.1 g/dl (14.0-18.0); Mean Corpuscular HGB Conc 33.5 g/dl (31.0-36.0); Mean Corpuscular Hemoglobin 30.3 pg (27.0-33.0); Mean Corpuscular Volume 90.5 fL (80.0-98.0); NRBC Abs Auto 0.000 X10*3/uL (0.0-0.012); NRBC Pct Auto 0.0 /100WBC (0.0-0.2); Platelet Count 236 X10*3/uL (160-400); Red Blood Count 3.99 X10*6/uL (4.60-5.80); White Blood Count 11.6 X10*3/uL (4.8-10.8)
[2025-01-14 18:49] LABS: Venous Blood Gas Refer to POC result
[2025-01-14 18:50] LABS: VBG HCO3 23 mmol/L (22-26); VBG O2 % Saturation 99.0 %
[2025-01-14 18:54] LABS: INTERNATIONAL NORM RATIO 1.2 (0.9-1.1); Prothrombin Time 13.7 SEC (10.9-12.4)
[2025-01-14 19:03] LABS: Alanine Aminotransferase 31 U/L (0-40); Albumin Level 3.8 g/dL (3.5-5.0); Alkaline Phosphatase 88 U/L (39-117); Anion Gap 14 (12-20); Aspartate Amino Transferase 45 U/L (5-37); Blood Urea Nitrogen 21 mg/dL (9-16); Calcium 8.9 mg/dL (8.4-10.2); Carbon Dioxide 22 mmol/L (22-29); Chloride 107 mmol/L (96-108); Creatinine Clr Calc Pharmacy 57.6; Estimated Glomerular Filt Rate 44; Magnesium 2.0 mg/dL (1.6-2.6); Potassium 3.8 mmol/L (3.3-5.1); Sodium 139 mmol/L (135-145); Total Protein 7.0 g/dL (6.5-8.0)
[2025-01-14 19:05] LABS: COVID-19 Test Negative (Negative); IDNOW Serial# 6674DD1D
[2025-01-14 19:09] LABS: IDNOW Serial# 08D9AD1C; Influenza B2 Negative (Negative)
[2025-01-14 19:15] LABS: Troponin-I High Sensitivity 103.1 ng/L (<3.5-35.0)
[2025-01-14] MEDS: SODIUM CHLORIDE 3066 ML IV (19:21)
--- OUTSIDE RECORDS SUMMARY | 2025-01-14 19:34 | XMS_ITS | Encounter Summary ---
Author Organization [employer] Address [address] [place] [address] Care Team Providers Care Boilermaker Pipe Fitter Name Role Phone Unavailable Primary Care Provider Unavailabl e Reason for Visit * Reason Onset Date Comments medication 11/19/2022 Encounter Details Date Type Department Care Team (Late st Contact Info) Description 11/19/2022 Telephone [facility] [address] [place] [address] Eduard Maya, NICOLAS [address] [place] [address] medication Social History Tobacco Use Types Packs/Day [...] EDT Patient was seen yesterday 11/[address] [place] Mack is not in today. The script for the toothpaste cannot be filled at the pharmacy patient had chosen at [address] That is a specialtypharmacy. He would like the script to be re sent to [facility] pharmacy. Can you pls help? documented in this encounter Plan of Treatment Not on file documented as of this encounter Visit Diagnoses Not on filedocumented in this encounter
--- OUTSIDE RECORDS SUMMARY | 2025-01-14 19:34 | XMS_ITS | Encounter Summary ---
Author Organization [employer] Address [address] [place] [address] Care Team Providers Care Undercover Operator Name Role Phone Unavailable Primary Care Provider Unavailabl e Encounter Details Date Type Department Care Team (Late st Contact Info) Description 12/24/2022 Abstract [facility] [address] [place] [address] Jd Jimenez, NICOLAS [address] [place] [address] Social History Tobacco Use Types Packs/Day Years [...]
--- OUTSIDE RECORDS SUMMARY | 2025-01-14 19:34 | XMS_ITS ---
Author Organization [facility] Care Team Providers Care Supervisor Laboratory Animal Facility Name Role Phone Zoe Guzman Unavailable Unavailable Zoe Hackett Unavailable Unavailable Michael Kimball Unavailable Unavailable Jerry Bates Unavailable Unavailable Allergies and adverse reactions No Known Allergies Care Team Name Role Address Phone Organization Dates Jerry Pauol PCP [address] [place] [address], [facility] (Office): : [facility] 01/08/2025 - present Zoe Guzman [address] [place] [address], [facility] (Office): : [facility] 01/08/2025 - present Zoe Hackett [address] [address], [facility] (Office): : [facility] 01/08/2025 - present Michael Kimball [address] [place] [address], [facility] (Office): : [facility] 01/08/2025 - present Encounters Encounter Type Code Code System Description Performer Discharge Disposition Service Delivery Location Date Ambulatory Encounter CPT Code = [id number] Neuropathy [facility] Address: [address] [place] [address]. 01/08 Ambulatory Encounter CPT Code = [id number] [place] [facility] Address: [address] [place] [address]. 01/08 Ambulatory Encounter CPT Code = [id number] Spasm [facility] Address: [address] [place] [address]. 01/08 Ambulatory Encounter CPT Code = [id number] Benign prostatic hyperplasia [facility] Address: [address] [place] [address]. 01/08 Ambulatory Encounter CPT Code = [id number] Type 2 diabetes mellitus without complication [facility] Address: [address] [place] [address]. 01/08 Ambulatory Encounter CPT Code = [id number] Major depression, single episode [facility] Address: [address] [place], [place] [address]. 01/08 Ambulatory Encounter CPT Code = [id number] Pain of left knee region [facility] Address: [address] [place] [address]. 01/08 Ambulatory Encounter CPT Code = [id number] Atherosclerosis of coronary artery without angina pectoris [facility] Address: [address] [place] [address]. 01/08 Ambulatory Encounter CPT Code = [id number] Posttraumatic stress disorder [facility] Address: [address] [place] [address]. 01/08 Ambulatory Encounter CPT Code = [id number] Anxiety disorder [facility] Address: [address] [place] [address]. 01/08 Ambulatory Encounter CPT Code = [id number] Anemia [facility] Address: [address] [place] [address]. 01/08 Ambulatory Encounter CPT Code = [id number] Pain of right knee joint [facility] Address: [address] [place] [id number] [place] [address]. 01/08 Ambulatory Encounter CPT Code = [id number] Atrial fibrillation [facility] Address: [address] [place] [address]. 01/08 Ambulatory Encounter CPT Code = [id number] Essential hypertension [facility] Address: [address] [place] [address]. 01/08 Ambulatory Encounter CPT Code = [id number] Neck pain [facility] Address: [address] [place] [address]. 01/08 Goals Section Goals Description Status Target Date I plan to discharge to: Spec guillermo- To community alone, Pending outcome of therapy sessions, clinical medical stability progress reviewed weekly. Active 04/04/2025 I will be able to identify t he triggers that cause me to experience anxiety, trauma, and flashbacks and learn coping mechanisms to mitigate their impact on my well-being through the review date. Active 04/04/2025 I will be at reduced risk fo r adverse drug reactions through the review date. Active 04/04/2025 I will be at reduced risk fo r complications of self care performance deficit and impaired mobility daily through the review date. Active 04/04/2025 I will be free from discomfo rt and adverse effects of pain medication through the review date. Active 04/04/2025 I will be free from discomfo rt or adverse side effects related to anti-anxiety therapy through the review date. Active 04/04/19 I will be free from discomfo rt or adverse side effects related to anti-depressant therapy through the review date. Active 04/04 I will be free from discomfo rt or adverse side effects related to anti-psychotic therapy through the review date. Active 2025 I will be free from infection through the next r eview date. Active 04/04/2025 I will be free from s/sx of complications of cardiac problems through the review date. Active 04/04/2025 I will be free from s/sx of dehydration through next review date. Active 04/04/2025 I will be free of fall relat ed injury through the next review date. Active 04/04/2025 I will continue to be indepe ndent and pursue activities of interest through next review. Active 04/04/2025 I will have no complications related to diabetes through the review date. Active 04/04/2025 I will maintain adequate nut ritional status as evidenced by maintaining weight within +/-5% of CBW, no s/sx of malnutrition, and consuming at least 76% of all meals daily through review date. Active 04/04/2025 I will maintain or improve m y independence and mobility through review date. Active 04/04/2025 I will not have skin breakdo wn due to incontinence through the review date. Active 04/04/2025 I will verbalize adequate re lief of pain or ability to cope with incompletely relieved pain through the review date. Active My risk for respiratory comp lications and infections will be mitigated through the review date. Active 04/04/2025 My skin integrity will be im proved or maintained by next review date. Active 04/04/2025 The resident will have intac t skin, free of redness, blisters, or discoloration through review date. Active 04/04/2025 The resident's advance direc tives are in effect and their wishes will be carried out through the next review. Active Functional Status Code Name Recorded Time Value Entered By Eating 01/14/2025 Carlitos jefferson Lying to sitting on side of bed 01/14/2025 Carlitos jefferson Oral hygiene 01/14/2025 Setup or clean-up assistance mary janeartinezj Personal hygiene 01/14/2025 Partial/moderate assista nce eugeniazj Shower/bathe self 01/14/2025 Partial/moderate assist ance eugeniazj Sit to lying 01/14/2025 Supervision or t ouching assistance eugeniazj Toilet transfer 01/14/2025 Not [facility] Toileting hygiene 01/14/2025 Not assessed [facility] Immunizations Immunization Status Vaccine Details Vaccine Code CodeSystem Date Notes (Shingles) Vaccine completed zoster vaccine recombinant lotNumber: [id number] Mfg: [employer] Given 0.5 intramuscularly 187 CVX created date: 01/12/2025 administer ed date: 09/01/2021 doseUOMN oncoded: mL PCV13 (Pneumococcal Conjugate)Vaccin e completed pneumococcal conjugate vaccine, 13 valent lotNumber: [id number] Mfg: [employer] Given 0.5 intramuscularly 133 CVX created date: 01/12/2025 administer ed date: 04/08/2022 doseUOMN oncoded: mL Td(adult) unspecified formulation completed Td(adult) unspecified formulation lotNumber: [id number] Mfg: [employer] Given 0.5 intramuscularly 139 CVX created date: 01/12/2025 administer ed date: 10/26/2018 doseUOMN oncoded: mL Medications Section Medication Name Status Code CodeSystem Dose Route Frequency Admin Type Sig Text Start Date End Date Indication hydrOXYzine HCl Oral Tablet 25 MG aborted 36659 8 RXNORM 1 table t Oral as needed PRN Give 1 table t by mouth every 8 hours as neede d for antia nxiet y 01/10 antianxiety Diclofenac Sodium External Gel 1 % active 64910 3 RXNORM n/a n/a Topica l four times a day Routin e Apply to nat knees /neck topic ally four times a day for analg esic 2024 - analgesic Abilify Oral Tablet 2 MG active 30865 2 RXNORM 1 table t Oral one time a day Routin e Give 1 table t by mouth one time a day for ANTIP SYCHO TICS/ ANTIM ANIC AGENT S 2024 - ANTIPSYCHOT ICS/ANTIMAN IC AGENTS Metoprolol Tartrate Oral Tablet 25 MG active 78447 4 RXNORM 1 table t Oral two times a day Routin e Give 1 table t by mouth two times a day for HTN 2024 - HTN Zolpidem Tartrate Oral Tablet 5 MG aborted 81925 6 RXNORM 2 table t Oral at bedtime Routin e Give 2 table t by mouth at bedti me for HYPNO TICS/ SEDAT GINNY/ SLEEP DISOR KOSTA AGENT S 01/12 HYPNOTICS/S EDATIVES/SL EEP DISORDER AGENTS buPROPion HCl ER (XL) Oral Tablet Extended Release 24 Hour 300 MG active 81375 7 RXNORM 1 table t Oral one time a day Routin e Give 1 table t by mouth one time a day for antid brittani yudy 2024 - antidepress ant Venlafaxine HCl ER Oral Capsule Extended Release 24 Hour 150 MG active 89245 1 RXNORM 2 capsu le Oral one time a day Routin e Give 2 capsu le by mouth one time a day for antid brittani yudy 2024 - antidepress ant hydrOXYzine HCl Oral Tablet 25 MG aborted 30202 8 RXNORM 1 table t Oral as needed PRN Give 1 table t by mouth every 8 hours as neede d for anxie ty 01/10 anxiety Vitamin B12 Oral Tablet 1000 MCG active 1 table t Oral one time a day Routin e Give 1 table t by mouth one time a day for Suppl ement 2024 - Supplement oxyCODONE HCl Oral Tablet 5 MG active 80646 21 RXNORM 1 table t Oral as needed PRN Give 1 table t by mouth every 6 hours as neede d for Pain 2024 - Pain Cholecalcif herberth Tablet 1000 UNIT active 60547 2 RXNORM 1 table t Oral one time a day Routin e Give 1 table t by mouth one time a day for Suppl ement 2024 - Supplement Tamsulosin HCl Oral Capsule 0.4 MG active 69627 9 RXNORM 1 capsu le Oral at bedtime Routin e Give 1 capsu le by mouth at bedti me for BPH 2024 - BPH Nystatin Powder active n/a n/a Topica l two times a day Routin e Apply to affec ranjeet area topic ally two times a day for antif ungal 2024 - antifungal Lantus SoloStar Subcutaneou s Solution Pen-injecto r 100 UNIT/ML active 23762 2 RXNORM 38 unit Subcut aneous at bedtime Routin e Injec t 38 unit subcu taneo usly at bedti me for Diabe ashley Melli tus 2024 - Diabetes Mellitus Lisinopril Oral Tablet 5 MG active 23259 4 RXNORM 2.5 mg Oral one time a day Routin e Give 2.5 mg by mouth one time a day for HTN 2024 - HTN Tubersol Solution 5 UNIT/0.1ML active 50764 5 RXNORM 0.1 ml Intrad ermal one time only One Time Only Injec t 0.1 ml intra derma lly one time only for 1st PPD test for 1 Day Injec t 0.1ml [5TU] intra derma lly withi n 24 hours of admis abelino. Recor d site. Read in 48 hours . If negat dimitri, admin ister 2nd step in 7-10 days, read in 48 hours and recor d. AND Injec t 0.1 ml intra derma lly one time only for 2nd PPD test for 1 Day Injec t 0.1ml [5TU] intra derma lly. Recor d site. Read in 48 hours and recor d 01/10 1st PPD test 47748 5 RXNORM 0.1 ml Intrad ermal one time only One Time Only Injec t 0.1 ml intra derma lly one time only for 1st PPD test for 1 Day Injec t 0.1ml [5TU] intra derma lly withi n 24 hours of admis abelino. Recor d site. Read in 48 hours . If negat dimitri, admin ister 2nd step in 7-10 days, read in 48 hours and recor d. AND Injec t 0.1 ml intra derma lly one time only for 2nd PPD test for 1 Day Injec t 0.1ml [5TU] intra derma lly. Recor d site. Read in 48 hours and recor d 01/24 2nd PPD test Acetaminoph en Oral Tablet 325 MG active 21036 2 RXNORM 2 table t Oral as needed PRN Give 2 table t by mouth every 6 hours as neede d for Pain Total Dose 650mg * *DO NOT EXCEE D 3 grams in 24 hours AND Give 2 table t by mouth every 6 hours as neede d for Savage ratur e great er than 101.F Total Dose 650mg * *DO NOT EXCEE D 3 grams in 24 hours 2024 - Pain 97232 2 RXNORM 2 table t Oral as needed PRN Give 2 table t by mouth every 6 hours as neede d for Pain Total Dose 650mg * *DO NOT EXCEE D 3 grams in 24 hours AND Give 2 table t by mouth every 6 hours as neede d for Savage ratur e great er than 101.F Total Dose 650mg * *DO NOT EXCEE D 3 grams in 24 hours 2024 - Temperature greater than 101.F Milk of Magnesia Oral Suspension 400 MG/5ML active 70152 7 RXNORM 30 ml Oral as needed PRN Give 30 ml by mouth every 24 hours as neede d for Const ipati on Give 30ml by mouth if no bowel movem ent in 3 days (9 Shift s). 2024 - Constipatio n Bisacodyl Rectal Suppository 10 MG active 9 RXNORM 1 suppo sitor y Rectal as needed PRN Inser t 1 suppo sitor y recta lly every 24 hours as neede d for Const ipati on Give 1 Suppo sitor y (10mg ) via rectu m if no resul ts from Milk of Magne jesse after 24 hours . 2024 - Constipatio n Fleet Enema Rectal Enema 7-19 GM/118ML active 50102 5 RXNORM 1 appli cator Rectal as needed PRN Inser t 1 appli cator recta lly as neede d for Const ipati on Give 1 appli cator full (118 ml)if no resul ts from Bisac odyl suppo sitor y. 2024 - Constipatio n Enoxaparin Sodium Solution 30 MG/0.3ML active 17203 8 RXNORM 30 mg Subcut aneous one time a day Routin e Injec t 30 mg subcu taneo usly one time a day for preve nt blood clott ing 2024 - prevent blood clotting Finasteride Tablet 5 MG active 73197 6 RXNORM 1 table t Oral one time a day Routin e Give 1 table t by mouth one time a day for BPH 2024 - BPH hydrOXYzine HCl Oral Tablet 25 MG active 88474 8 RXNORM 1 table t Oral as needed PRN Give 1 table t by mouth every 8 hours as neede d for antia nxiet y for 14 Days 01/24 antianxiety Lidocaine Patch 4 % active 46930 78 RXNORM n/a n/a Topica l in the morning Routin e Apply to area of disco mfort topic ally in the morni ng for Right Knee for 12 hours then remov e 2024 - Right Knee Lidocaine Patch 4 % active 46390 78 RXNORM n/a n/a Topica l in the morning Routin e Apply to area of disco mfort topic ally in the morni ng for Left Knee for 12 hours then remov e 2024 - Left Knee TiZANidine HCl Tablet 2 MG aborted 93776 2 RXNORM 1 table t Oral three times a day Routin e Give 1 table t by mouth three times a day for muscl e relax ant for 10 Days 01/12 muscle relaxant Methocarbam ol Oral Tablet active 500 mg Oral as needed PRN Give 500 mg by mouth every 8 hours as neede d for muscl e spasm 2024 - muscle spasm Erythromyci n Ophthalmic Ointment 5 MG/GM aborted 94038 9 RXNORM 1 appli catio n Ophtha lmic four times a day Routin e Insti ll 1 appli catio n in left eye four times a day for eye redne ss and disch arge for 5 Days 01/13 eye redness and discharge Erythromyci n Ophthalmic Ointment 5 MG/GM active 72601 9 RXNORM 1 appli catio n Ophtha lmic four times a day Routin e Insti ll 1 appli catio n in right eye four times a day for eye redne ss and disch arge for 5 Days 01/18 eye redness and discharge Ambien Oral Tablet 5 MG active 62752 8 RXNORM 2 table t Oral at bedtime Routin e Give 2 table t by mouth at bedti me for insom marlon for 3 days 2024 - insomnia Macrobid Oral Capsule active 100 mg Oral two times a day Routin e Give 100 mg by mouth two times a day for UTI for 7 days 2024 - UTI Phenazopyri dine HCl Tablet 100 MG active 43143 07 RXNORM 1 table t Oral three times a day Routin e Give 1 table t by mouth three times a day for UTI for 3 Days for 3 days 01/17 UTI Saccharomyc es boulardii Capsule 250 MG active 02706 5 RXNORM 1 capsu le Oral two times a day Routin e Give 1 capsu le by mouth two times a day for probi otic for 7 Days 01/21 probiotic Insurance Providers Plan of Treatment Section Interventions Intervention Code Code System Display Name Proposed D ate Problems Problem # Description Date of onset Resolved Date Code CodeSystem Concern Status 1 ANEMIA, UNSPECIFIED 01/10/[address] active 2 ATHEROSCLEROTIC HEART DISEASE OF [place] CORONARY ARTERY WITHOUT ANGINA PECTORIS 01/10/[address] active 3 BENIGN PROSTATIC HYPERPLASIA WITHOUT LOWER URINARY TRACT SYMPTOMS 01/10/[address] active 4 ESSENTIAL (PRIMARY) HYPERTENSION 01/10/[address] active 5 OTHER MUSCLE SPASM 01/10/[address] active 6 PAIN IN LEFT KNEE 01/10/[address] active 7 PAIN IN RIGHT KNEE 01/10/[address] active 8 UNSPECIFIED ATRIAL FIBRILLATION 01/10/[address] active 9 CERVICALGIA 01/09/[address] active 10 HEREDITARY AND IDIOPATHIC NEUROPATHY, UNSPECIFIED 01/09/[address] active 11 MAJOR DEPRESSIVE DISORDER, SINGLE EPISODE, UNSPECIFIED 01/09/[address] active 12 OTHER SPECIFIED ANXIETY DISORDERS 01/09/[address] active 13 POST-TRAUMATIC STRESS DISORDER, UNSPECIFIED 01/09/[address] active 14 REPEATED FALLS 01/09/[address] active 15 TYPE 2 DIABETES MELLITUS WITHOUT COMPLICATIONS 01/09/[address] active Reason for Referral No Reasons for Referral Entered Social History Social History Observation Description Start Date End Date Code Code System Current Smoking Status Tobacco smoking consumption unknown 246321223 SNOMED CT Sex Assigned At Male 1960 50791-7 [facility] Gender Identity Sexual Orientation Vital Signs Code Code System Vitals Name Values and Units Timing Information 9279-1 [facility] Respiratory Rate Value=18.0 Units=/m in 01/14/2025 8310-5 [facility] Body Temperature Value=98.4 Units= F 01/14/2025 2339-0 [facility] Blood Sugar Eykcy=843.0 Units=mg/dL 01/14/2025 68973-9 [facility] O2 % BldC Oximetry Value=95.0 Units= % 01/14/2025 8867-4 [facility] Heart rate Value=96.0 Units=/min 8462-4 [facility] Blood Pressure-Diastolic Value=78 Un its=mmHg 01/14/2025 8480-6 [facility] Blood Pressure-Systolic Vgqzo=687 Un its=mmHg 01/14/2025 57687-2 [facility] Pain Level Value=3.0 01/14/2025 8302-2 [facility] Height Value=70.0 Units=Inches 01/09/2025 84274-1 [facility] Weight Uoevt=052.6 Units=Lbs
--- OUTSIDE RECORDS SUMMARY | 2025-01-14 19:34 | XMS_ITS | Encounter Summary ---
Author Organization [employer] Address [address] [facility] [address] [place] [address] Care Team Providers Care Lathe Sander Name Role Phone Unavailable Primary Care Provider Unavailabl e Encounter Details Date Type Department Care Team (Latest Contact Info) Description 10/09/2020 Abstract [facility] CONVERSIONS Dental, Provider, DDS Social History [...]
--- OUTSIDE RECORDS SUMMARY | 2025-01-14 19:34 | XMS_ITS | Encounter Summary ---
Author Organization [employer] Address [address] [facility] [address] [place] [address] Care Team Providers Care Dental Appliance Mechanic Name Role Phone Unavailable Primary Care Provider Unavailabl e Reason for Visit * Reason Onset Date Comments appt slip 01/11/2024 Encounter Details Date Type Department Care Team ([facility] st Contact Info) Description 01/11/[address] [facility] [address] [place], [place] [phone] Chandni Castellano [address] [place], [place] [phone] appt slip Social History Tobacco Use Types [...]
--- OUTSIDE RECORDS SUMMARY | 2025-01-14 19:34 | XMS_ITS | Encounter Summary ---
Author Organization [employer] Address [address] [facility] 7t [place] [address] Care Team Providers Care Handbag Operator Name Role Phone Unavailable Primary Care Provider Unavailabl e Encounter Details Date Type Department Care Team (Late st Contact Info) Description 01/21/2023 Abstract [facility] [address] [place] [address] Eduard Maya, DDS [address] [facility] [place] [address] Social History Tobacco Use Types Packs/Day Years [...]
--- OUTSIDE RECORDS SUMMARY | 2025-01-14 19:34 | XMS_ITS | Clinical Summary ---
Author Organization [employer] Address [address] [facility] 7t [place] [address] Care Team Providers Care Resist Coater Developer Name Role Phone Unavailable Primary Care Provider [...] (PreviDent 5000 Booster Plus) 1.1 % paste Grover with pea sized amount of tothpaste, spit [...] Description 11/15/2024 2:00 PM EDT Office Visit [facility] [address] [place] [address] Isi Kang BDS Dental caries (Primary Dx) [...] Relevant to Health Maintenance Insurance DENTAL - [facility]
--- OUTSIDE RECORDS SUMMARY | 2025-01-14 19:34 | XMS_ITS | Encounter Summary ---
Author Organization [employer] Address [address] [facility] [address] [place] [address] Care Team Providers Care Instrumentation And Control Technician Name Role Phone Unavailable Primary Care Provider Unavailabl e Encounter Details Date Type Department Care Team (Latest Contact Info) Description 06/13/2018 Abstract [facility] CONVERSIONS Dental, Provider, DDS Social History [...]
[2025-01-14 19:58] LABS: Band Neutrophils Percent 8 % (3-5); Lymphocytes Absolute Manual 0.3 X10*3/uL (1.2-4.9); Lymphocytes Percent Manual 3 % (20-40); Metamyelocytes Absolute 0.2 X10*3/uL; Metamyelocytes Percent 2 %; Monocytes Absolute Manual 0.2 X10*3/uL (0.1-1.2); Monocytes Percent Manual 2 % (2-11); Neutrophils Absolute Manual 10.8 X10*3/uL (2.0-8.3); Neutrophils Percent Manual 85 % (45-73)
[2025-01-14 19:59] LABS: Macrocytosis 1+ (5-14) /OIF; RBC Morphology NOTED
[2025-01-14 20:03] LABS: Toxic Vacuolation PRESENT
[2025-01-14 20:20] LABS: Troponin-I High Sensitivity 124.7 ng/L (<3.5-35.0)
[2025-01-14] MEDS: Hydrocortisone Sod Succ/PF 100 MG VIAL IVPUSH (21:35)
[2025-01-14] MEDS: vancomycin/NS 2,000 MG/500 ML PLAST..BAG 250 MG IV (21:47)
[2025-01-14 22:07] LABS: Appearance Urine Clear; Glucose Urine UA Negative (Negative); PH 5.5 (5.0-9.0); Specific Gravity - Urine 1.015 (1.005-1.025); UMIC TRIGGER UACC YES
[2025-01-14 22:12] LABS: UACC Culture Trigger YES
--- NOTE | 2025-01-14 22:19 | PM.IMHP ---
History of Present Illness Date of Service: 01/14/25 Attending physician on admission: Caden Mora Chief Complaint: Fever Nicho Alvarez is a 64 years old man with past medical history significant for type 2 diabetes mellitus on insulin, BPH, chronic back pain/lumbar stenosis, hyperlipidemia, mood disorder and CAMILA on CPAP was brought to the ED via ambulance from his rehab center after he was found to have fever and events of loss of consciousness. He also was vomiting. Viral of the HPI was provided by patient's sister and niece who were at bedside. Last Tuesday, patient fell and was evaluated at [facility]. There he underwent a lumbar CT scan that showed stenosis. He has been having weakness to the lower extremities and bilateral knee pain; both attributed to lumbar stenosis.. Over the last few days he has been experiencing frequency with urination. Last Tuesday he was seen in the emergency department and was found to have a UTI. Denied pain with urination or blood in urine. He also denied abdominal pain. Last bowel movement was today. He has been straining as he has been taking oxycodone for back pain. Patient denied tobacco smoking, alcohol abuse or illicit drug use. In the ED, he was found to have soft blood pressure, lowest 98/45. Last BP is 110/59. Temperature was found to be 103.3. There is no significant tachycardia. And oxygen saturation is normal on room air. Blood workup showed leukocytosis of 11.6. There is no lactic acidosis. Hemoglobin is 12.7 and platelets 236. INR is 1.2. PH is 7.45 and pCO2 32. There are no significant electrolyte imbalances. BUN is 21 and creatinine 1.58. Glucose is 152. LFTs are normal except for slight elevation of AST, 45. Troponin came back to 103.1 then 124.4. UA is consistent with UTI. Test for COVID-19 and influenza is negative. CXR is negative. ECG showed NSR and no acute ischemic changes. ED tx: Ceftriaxone 2 g IV, Zosyn 4.5 g IV, Solu-Cortef 100 mg IV, acetaminophen 975 mg p.o., NS bolus 4 L total. Review of Systems Review of Systems: All 12 systems were reviewed and normal except as noted in HPI. [facility] Medical History (Updated 01/15/25 @ 10:25 by Mahesh Mahan MD) Hyperlipidemia Obstructive sleep apnea on CPAP Type 2 diabetes mellitus Family History (Updated 01/15/25 @ 10:23 by Mahesh Mahan MD) Other Breast cancer Social History Household Members: None Housing: Apartment Do you presently have visiting nurse or other home services: No Patient Tobacco Use Status: Never used Tobacco service: No Meds Allergies Allergy/AdvReac Type Severity Reaction Status Date / Time No Known Allergies Allergy Verified 01/14/25 18:26 Active Medications: Current Medications Acetaminophen (Acetaminophen 325 Mg Tablet) 975 mg PO Q6H PRN PRN Reason: Pain, Mild 1-3,fever,headache Calcium Carbonate (Calcium Carbonate 750 Mg Tab.Chew) 750 mg PO Q4H PRN PRN Reason: Heartburn Enoxaparin Sodium (Enoxaparin Sodium 40 Mg/0.4 Ml Syringe) 40 mg SUBCUT Q24H XAVIER Vancomycin HCl (Vancomycin/Ns) 2,000 mg in 500 mls @ 250 mls/hr IV ONCE ONE Stop: 01/14/25 23:19 Last Admin: 01/14/25 21:47 Dose: 250 mls/hr Magnesium Hydroxide (Milk Of Magnesia 30 Ml Oral.Susp) 30 ml PO DAILY PRN PRN Reason: Constipation Melatonin (Melatonin 3 Mg Tablet) 6 mg PO BEDTIME PRN PRN Reason: Insomnia Sodium Chloride (0.9 % Sodium Chloride Flush 3 Ml Syringe) 3 ml IVFLUSH QSHIFT [facility] Home Medications ?Medication ?Instructions ?Recorded ?Confirmed ?Last Taken ?Type aripiprazole 2 mg tablet 2 mg PO DAILY 01/15/25 01/15/25 Unknown History bupropion HCl 300 mg 24 hr tablet, 300 mg PO DAILY 01/15/25 01/15/25 Unknown History extended release cholecalciferol (vitamin D3) 25 25 mcg PO DAILY 01/15/25 01/15/25 Unknown History mcg (1,000 unit) tablet cyanocobalamin (vitamin B-12) 1,000 mcg PO DAILY 01/15/25 01/15/25 Unknown History 1,000 mcg tablet hydroxyzine HCl 25 mg tablet 25 mg PO Q8H PRN Anxiety 01/15/25 01/15/25 Unknown History lidocaine 4 % topical patch 2 patch topical DAILY 01/15/25 01/15/25 Unknown History lisinopril 2.5 mg tablet 2.5 mg PO DAILY 01/15/25 01/15/25 Unknown History Held on 01/15/25. Instructions: Resume on 01/23/25. methocarbamol 500 mg tablet 500 mg PO Q8H PRN Muscle Spasm 01/15/25 01/15/25 Unknown History nystatin 100,000 unit/gram topical 1 appl topical BID 01/15/25 01/15/25 Unknown History powder oxycodone 5 mg tablet 5 mg PO Q6H PRN Pain 01/15/25 01/15/25 Unknown History tamsulosin 0.4 mg capsule 0.4 mg PO BEDTIME 01/15/25 01/15/25 Unknown History venlafaxine 150 mg 300 mg PO DAILY 01/15/25 01/15/25 Unknown History capsule,extended release 24 hr zolpidem 10 mg tablet 10 mg PO BEDTIME PRN Sleep 01/15/25 01/15/25 Unknown History Physical Exam Vital Signs and Narrative: Vital Signs: Last Vital Signs Temp 99.3 F 01/14/25 21:26 Pulse 84 01/14/25 21:26 Resp 19 01/14/25 21:26 BP 105/53 L 01/14/25 21:26 Pulse Ox 100 01/14/25 21:26 O2 Del Method Room Air 01/14/25 21:26 O2 Flow Rate 2 01/14/25 20:38 Oxygen Flow Rate 2 01/14/25 18:41 BMI result Body Mass Index 30.6 General: Alert, oriented, in no acute distress. Well nourished and cooperative. Afebrile. HEENT: Head normocephalic, atraumatic. PER, EOMI. Sclerae anicteric, conjunctiva clear. Mucous membranes dry. Neck: Supple, Heart: RRR, no murmurs, rubs or gallops. Lungs: Clear to auscultation bilaterally. No wheezes, rales, or rhonchi. Normal respiratory effort. Abdomen: Soft, non tenderness, nondistended, normoactive bowel sounds. No hepatosplenomegaly, masses or masses. Extremities: Mild pitting edema to the lower extremities. Musculoskeletal: Full range of motion. No joint swelling, deformity, or tenderness. Skin: Warm/Dry. No pallor. No jaundice. Neurologic: Alert & oriented x4. Bilateral lower extremity weakness and noted. Normal speech. Psychological: Normal mood and affect. Thought process coherent. Results Labs 01/15/25 08:22 01/15/25 06:55 Labs: Laboratory Results - last 24 hr 01/14/25 01/14/25 01/14/25 18:19 18:39 18:43 MCV 90.5 MCH 30.3 MCHC 33.5 RDW 14.2 Plt Count 236 MPV 9.3 L Immature Gran % (Auto) Cancelled Neut % (Auto) Cancelled Lymph % (Auto) Cancelled Wells % (Auto) Cancelled Eos % (Auto) Cancelled Baso % (Auto) Cancelled Lymph # (Auto) Cancelled Wells # (Auto) Cancelled Eos # (Auto) Cancelled Baso # (Auto) Cancelled Abs Immat Gran (auto) Cancelled Absolute Neuts (auto) Cancelled Absolute Nucleated RBC 0.000 Nucleated RBC % (auto) 0.0 Neutrophils % (Manual) 85 H Band Neutrophils % 8 H Lymphocytes % (Manual) 3 L Monocytes % (Manual) 2 Metamyelocytes % 2 Abs Neuts (Manual) 10.8 H Lymphocytes # (Manual) 0.3 L Monocytes # (Manual) 0.2 Metamyelocytes # 0.2 Toxic Vacuolation PRESENT Platelet Estimate NORMAL Plt Morphology Comment NORMAL RBC Morphology NOTED Macrocytosis 1+ (5-14) Smear Tech's Comments MANUAL DIFF PT 13.7 H INR 1.2 H VBG pH VBG pCO2 VBG pO2 VBG HCO3 VBG O2 Saturation VBG Base Excess Anion Gap 14 Estim Creat Clear Calc 57.6 Estimated GFR 44 POC Glucose 159 H Random Glucose 152 H Lactic Acid 1.8 Calcium 8.9 Magnesium 2.0 Total Bilirubin 1.0 AST 45 H ALT 31 Alkaline Phosphatase 88 Troponin I High Sens 103.1 H* Total Protein 7.0 Albumin 3.8 Urine Color Urine Appearance Urine pH Ur Specific [place] Urine Protein Urine Glucose (UA) Urine Ketones Urine Blood Urine Nitrite Ur Leukocyte Esterase Urine RBC Urine WBC Ur Squamous Epith Cells Urine Bacteria Hyaline Casts COVID-19 (JAMARCUS) Negative COVID-19 Clin Com See Note Influenza Type A (PEYTON) Negative Influenza Type B (PEYTON) Negative Influenza A & B Note See Note 01/14/25 01/14/25 01/14/25 18:47 19:45 21:44 MCV MCH MCHC RDW Plt Count MPV Immature Gran % (Auto) Neut % (Auto) Lymph % (Auto) Wells % (Auto) Eos % (Auto) Baso % (Auto) Lymph # (Auto) Wells # (Auto) Eos # (Auto) Baso # (Auto) Abs Immat Gran (auto) Absolute Neuts (auto) Absolute Nucleated RBC Nucleated RBC % (auto) Neutrophils % (Manual) Band Neutrophils % Lymphocytes % (Manual) Monocytes % (Manual) Metamyelocytes % Abs Neuts (Manual) Lymphocytes # (Manual) Monocytes # (Manual) Metamyelocytes # Toxic Vacuolation Platelet Estimate Plt Morphology Comment RBC Morphology Macrocytosis Smear Tech's Comments PT INR VBG pH 7.45 H VBG pCO2 32 VBG pO2 106 VBG HCO3 23 VBG O2 Saturation 99.0 VBG Base Excess -0.2 Anion Gap Estim Creat Clear Calc Estimated GFR POC Glucose Random Glucose Lactic Acid Calcium Magnesium Total Bilirubin AST ALT Alkaline Phosphatase Troponin I High Sens 124.7 H* Total Protein Albumin Urine Color Dark Yellow Urine Appearance Clear Urine pH 5.5 Ur Specific [place] 1.015 Urine Protein Negative Urine Glucose (UA) Negative Urine Ketones Negative Urine Blood Moderate (2+) H Urine Nitrite Positive H Ur Leukocyte Esterase Moderate (2+) H Urine RBC 6-10 H Urine WBC 21-50 H Ur Squamous Epith Cells 0-2 Urine Bacteria 2+ Hyaline Casts 0-2 COVID-19 (JAMARCUS) COVID-19 Clin Com Influenza Type A (PEYTON) Influenza Type B (PEYTON) Influenza A & B Note Assessment and Plan (1) UTI (urinary tract infection): Qualifiers: Hematuria presence: without hematuria Urinary tract infection type: site unspecified Qualified Code(s): N39.0 - Urinary tract infection, site not specified Status: Acute (2) Sepsis: Qualifiers: Acute respiratory failure type: unspecified Sepsis acute organ dysfunction status: with acute organ dysfunction Sepsis type: sepsis due to unspecified organism Severe sepsis shock status: without septic shock Status: Acute Plan Nicho Alvarez is a 64 y/o man who presents to the ED with: Sepsis secondary to UTI. Telemetry. Pulse oximetry. Continue empiric IV antibiotic therapy with Zosyn. Continue IV fluids. Urine and blood culture obtained -will follow results. Abdominal pelvis CT scan result still pending as the pt was unable to tolerate position (will reattempt later). Syncope likely secondary to above. Fall precautions. Continue antibiotics and fluids. Check TTE. Urinary retention. Residual 1,094 ml. Indwelling urinary catheter placement in the ED. Continue tamsulosin. Acute kidney injury, likely multifactorial: Sepsis, urinary retention. Indwelling urinary catheter placed in the ED. Continue to monitor renal function. Avoid nephrotoxic agents. BPH. Continue home meds when able (BP soft). Mood disorder. Continue home meds. Elevated troponin, likely demand ischemia. No chest pain or shortness on breath. Repeat troponin in the morning. Cardiology consult. Type 2 diabetes mellitus. BG checks before meals at bedtime. Insulin sliding scale. Diabetic diet. Check hemoglobin A1c. Hyperlipidemia. Continue atorvastatin. CAMILA. Nocturnal CPAP. Chronic back pain. I suggest to obtain a lumbar MRI when patient becomes more stable. Fever likely secondary to UTI but lumbar infectious issues could not be ruled out completely. Code status: Full DVT prophylaxis: Lovenox med rec pending Patient will need hospitalization for at least 2 midnights for sepsis secondary to UTI treatment with IV antibiotics and IV hydration. This documentation was generated using dictation software; minor spreading or computer trainer errors may be present. Quality Stroke Does the patient have a stroke diagnosis?: No VTE Prior VTE?: No VTE Risk Level:: Medical - moderate - high VTE Device Contraindication: Treatment Not Indicated VTE Drug Contraindication: N/A - Med Ordered
--- NOTE | 2025-01-14 22:25 | PC.NURSE ---
Baclofen ordered due to muscle spasms, unable to get CT. Dr. Bryan aware of BP, okay to give. Pt remains on cardiac/BP monitoring
[2025-01-15] VITALS (15 sets, daily range): BP systolic 108–147; BP diastolic 59–70; PULSE 69–98; RESP 13–25; TEMP 36.3–37.6; O2SAT 94–97; BMI 31.5; BMI 30.7
--- NOTE | 2025-01-15 | ECG_ITS ---
Test Reason : elevated troponin Blood Pressure : */* mmHG Vent. Rate : 81 BPM Atrial Rate : * BPM P-R Int : * ms QRS Dur : 84 ms QT Int : 370 ms P-R-T Axes : * 11 69 degrees QTcB Int : 429 ms Normal sinus rhythm with prolonged AV conduction Nonspecific T wave abnormality Abnormal ECG When compared with ECG of 14-Jan-2025 18:27, Nonspecific T wave abnormality, worse in Anterolateral leads Referred By: Jose Antonio Centeno Electronically Signed By: HU SORIANO
[2025-01-15] MEDS: 0.9 % Sodium Chloride Flush 3 ML SYRINGE IVFLUSH ×4 (00:01→21:58)
[2025-01-15] MEDS: iohexoL 350 MG/ML 100 ML INFUS..BTL 85 ML IV (00:47)
--- NOTE | 2025-01-15 07:00 | CA_ITS ---
Transthoracic Echocardiogram Patient (Last, First, Middle): Nicho Alvarez, Gender: Male Date of : 1960 Age: 64 Procedure Date: 01/15/2025 Procedure Type: Transthoracic Echocardiogram Location: ER Height: 177.8 cm Weight: 102.06 kg BSA: 2.19 m2 Heart Rate: bpm BP: 121 / 60 mmHg Dance Critic: /RC Referring MD: Caden Mora MD Symptoms: Syncope, elevated troponin Study Quality: Technically Difficult, contrast ECG Rhythm: Sinus Conclusions: - The left ventricular systolic function is normal. The visually estimated ejection fraction is between 55-60%. - The basal inferior and mid inferior segments are hypokinetic. - No obvious valvular pathology seen on this study. Findings Procedure Information Contrast agent, definity, is being given per protocol without apparent complications. The study quality is limited by the patients inability to tolerate the test. Left Ventricle Mildly increased left ventricular cavity size. There is normal left ventricular wall thickness. The left ventricular systolic function is normal. The visually estimated ejection fraction is between 55-60%. There is evidence of regional wall motion abnormalities. Diastolic function is indeterminate on the basis of available data. Wall Motion Rest Echo Findings The basal inferior and mid inferior segments are hypokinetic. Right Ventricle Mildly increased right ventricular cavity size. There is normal right ventricular systolic function. Atria Both atria are normal in size. Aortic Valve The aortic valve was not well visualized. There is no aortic valve stenosis. There is no aortic valve regurgitation. Mitral Valve The mitral valve appears normal. There is mild mitral annular calcification. There is no mitral valve regurgitation. There is no mitral valve stenosis. Pulmonic Valve The pulmonic valve was not well visualized. Tricuspid Valve There is trace tricuspid valve regurgitation. There is no evidence of pulmonary hypertension. Great Vessels The asc aorta is normal in size. Venous The inferior vena cava is normal in size and collapses greater than 50% with inspiration. Pericardium/Pleural There is no evidence of pericardial effusion. Prior Study Comparison No prior study available for comparison. Recommendations, Care & Conclusions No obvious valvular pathology seen on this study. Measurements 2D Linear Measurements IVSd: 0.92 0.6-0.9/0.6-1.0 cm LVIDd: 5.93 3.9-5.3/4.2-5.9 cm LVIDd Index: 2.71 2.4-3.2/2.2-3.1 cm/m2 LVIDs: 3.96 2.0-3.6 cm LVPWd: 0.93 0.7-1.1 cm LA Diam: 4.70 2.7-3.8/3.0-4.0 cm LAIDs Index: 2.15 1.5-2.3 cm/m2 LV Mass: 272.12 67-162/88-224 g LV Mass Index: 124.26 43-95/49-115 g/m2 LVOT Diam: 2.30 3.0+(-)1.3 cm 2D Systolic Function EF 4C: 68.80 >55% EF 2C: 73.70 >55% EF BiP: 71.20 >55% Mitral Valve MV Pk E: 1.22 MV Decel Time: 155.00 E'Lateral: 19.60 E'Medial: 15.10 E/E' Med: 8.10 E/E' Lat: 6.20 PHT: 46.00 MVA PHT: 4.78 Decel Converse: 8.02 Aortic Valve AoV Pk Vu: 1.41 AoV Mn Vu: 0.92 AoV VTI: 0.28 AoV Pk Grad: 8.00 Aov Mn Grad: 4.00 DENISA Cont.VTI: 3.31 LVOT LVOT Pk Vu: 1.13 LVOT Mn Vu: 0.80 LVOT VTI: 0.23 LVOT Pk Grad: 5.00 LVOT Mn Grad: 3.00 LVOT Diam: 2.30 LVOT Area: 4.15 Diastolic Function MV Pk E: 1.22 E'Medial: 15.10 E/E' Med: 8.10 E' Laterial: 19.60 E/E' Lat: 6.20 Right Ventricle TAPSE (mm): 36.10 TVS' Vu: 18.40 Tricuspid Valve TR Pk Vu: 2.78 TR Pk Grad: 31.00 Great Vessels Aorta Sinus of Valsalva: 3.90 2.0-3.5 cm Ao Asc: 3.80 2.1-3.4 cm Updated in Other Vendor System with Status of Final Mahesh Mahan MD electronically signed on 01/15/2025 11:43:46 AM with status of Final
[2025-01-15 07:11] LABS: Hematocrit 31.9 % (42.0-52.0); Hemoglobin 10.6 g/dl (14.0-18.0); Imm Gran Abs Auto 0.09 X10*3/uL (0.00-0.03); Imm Gran Pct Auto 0.7 % (0.0-0.4); Lymphocytes Absolute Auto 0.5 X10*3/uL (1.2-4.9); MANUAL DIFF FLAG SCAN; Mean Corpuscular HGB Conc 33.2 g/dl (31.0-36.0); Mean Corpuscular Hemoglobin 30.5 pg (27.0-33.0); Mean Corpuscular Volume 91.9 fL (80.0-98.0); NRBC Abs Auto 0.000 X10*3/uL (0.0-0.012); NRBC Pct Auto 0.0 /100WBC (0.0-0.2); Platelet Count 209 X10*3/uL (160-400); Red Blood Count 3.47 X10*6/uL (4.60-5.80); SCAN SMEAR FLAG 1; White Blood Count 13.6 X10*3/uL (4.8-10.8)
[2025-01-15 07:26] LABS: Anion Gap 11 (12-20); Blood Urea Nitrogen 21 mg/dL (9-16); Calcium 8.1 mg/dL (8.4-10.2); Carbon Dioxide 20 mmol/L (22-29); Chloride 117 mmol/L (96-108); Creatinine Clr Calc Pharmacy 94.8; Estimated Glomerular Filt Rate > 60; Magnesium 2.2 mg/dL (1.6-2.6); Potassium 3.9 mmol/L (3.3-5.1); Sodium 144 mmol/L (135-145)
--- NOTE | 2025-01-15 07:27 | HO.NURTONUR ---
Addendum entered by Jennifer Vazquez RN 01/15/25 13:02: This RN and pipe washer Mando transport Pt to room 462. JENNIFER Nuno and RN Afton at bedside and Heprin Drip and time of PTT drawn reviewed. Pts physical chart given to floor pulling unit floorhand. No questions put forth by floor JENNIFER Nuno. Care of Pt relinquished to JENNIFER Nuno Addendum entered by Jennifer Vazquez RN 01/15/25 12:04: Echo results/report printed and placed into Pt chart per request of Dr. Mahan. Lab calls to report gram (+) cocci growth in one of two sets of blood cultures. Results reported attending via [employer]. Addendum entered by Jennifer Vazquez RN 01/15/25 09:36: Lab calls to report Troponin 11,141.5 this morning. Attending aware and new orders for STAT EKG and Heparin drip initiation. Heparin started at 10ml/hr Repeat aPTT @ 1426 ordered per protocol. Pt is A&Ox3, VSS. Skin is warm and dry Breaths and speech are even and unlabored. Echo completed at bedside. Cardiology (Dr. Mahan) at bedside for eval. Reports possible transfer to [facility]-- awaiting confirmation. Original Note: 64 yr old male admitted for UTI with sepsis. Pt comes to ED from [facility] with decrease LOC, fever, and increased urination. Sepsis work up completed in ED on arrival as Pt was recently Dx with UTI and found to be febrile. Temp sensing irby placed. A&Ox3 VSS CPAP at night IV Left forearm
[2025-01-15 07:45] LABS: Glucose, Whole Blood 188 mg/dL (60-115)
--- NOTE | 2025-01-15 08:11 | PC.NURSE ---
Lab calls to reports a Troponin of 11,141.5 Critical lab reported to attending Amaury Porter via [employer]. Acknowledgement received; no new orders communicated at this time. Pt is A&Ox3 and currently eating breakfast. VSS, afebirle. NAD noted at this time. Awaiting inpatient room assignement.
[2025-01-15 08:43] LABS: Hematocrit 32.5 % (42.0-52.0); Hemoglobin 10.7 g/dl (14.0-18.0); Mean Corpuscular HGB Conc 32.9 g/dl (31.0-36.0); Mean Corpuscular Hemoglobin 30.7 pg (27.0-33.0); Mean Corpuscular Volume 93.4 fL (80.0-98.0); NRBC Abs Auto 0.000 X10*3/uL (0.0-0.012); NRBC Pct Auto 0.0 /100WBC (0.0-0.2); Platelet Count 196 X10*3/uL (160-400); Red Blood Count 3.48 X10*6/uL (4.60-5.80); White Blood Count 13.3 X10*3/uL (4.8-10.8)
[2025-01-15 08:50] LABS: INTERNATIONAL NORM RATIO 1.4 (0.9-1.1); Prothrombin Time 15.6 SEC (10.9-12.4)
[2025-01-15 08:53] LABS: PTT Heparin Drip 25.5 SEC (53-77.9)
[2025-01-15] MEDS: Heparin Sodium,Porcine/1/2NS 25,000 UNIT/250 ML IV.SOLN 10 UNIT IVCONT (09:25)
--- NOTE | 2025-01-15 10:22 | P.CONCA_ITS ---
History of Present Illness History of Present Illness Date of Service: 01/15/25 Chief complaint: Sepsis Narrative: This is a cardiology consultation regarding NSTEMI. Patient with many comorbidities including diabetes, chronic back pain, hyperlipidemia, obstructive sleep apnea presenting for fever/loss of consciousness. In this context, he is diagnosed with sepsis/UTI and NILSA. Troponins were checked and they were high and hence we are consulted. Overall, suggestive of type 2 NSTEMI. Patient himself does not have any known cardiac history including coronary disease or myocardial infarction. He also denies any active symptoms like chest pains. States he has got very limited mobility because of knee pain. And he was apparently in rehab recently. Review of Systems 2 Review of Systems: Yes all other systems are reviewed and are negative Constitutional: Constitutional: Reports as per HPI and Reports no additional constitutional complaints Eyes: Eyes: Reports as per HPI and Denies no additional eye complaints ENT: Denies system reviewed and no additional complaints, except as documented and Reports as per HPI Cardiovascular: Cardiovascular: Reports as per HPI, Reports no additional cardiovascular complaints, Denies acrocyanosis, Denies cool extremities, Denies chest pain, Denies leg edema, Denies lightheadedness, Denies palpitations and Denies dyspnea Respiratory: Respiratory: Reports as per HPI, Denies no additional respiratory complaints and Denies dyspnea Gastrointestinal: Gastrointestinal: Reports as per HPI and Denies no additional gastrointestinal complaints Genitourinary: Genitourinary: Reports no additional male genitourinary complaints and Reports as per HPI Musculoskeletal: Musculoskeletal: Reports no additional musculoskeletal complaints and Reports as per HPI Integumentary/Breasts: Skin/Breast: Reports system reviewed and no additional complaints, except as docu Neurologic: Reports system reviewed and no additional complaints, except as documented and Reports as per HPI Psychiatric: Psychiatric: Reports no additional psychiatric complaints and Reports as per HPI Endocrine: Endocrine: Reports no additional endocrine complaints, Reports as per HPI and Denies palpitations Hematologic/Lymphatic: Hematologic/Lymphatic: Reports no additional hematologic/lymphatic complaints and Reports as per HPI Allergic/Immunologic: Allergic/Immunologic: Reports no additional allergic/immunologic complaints and Reports as per HPI [facility] Past Medical History Medical History (Updated 01/15/25 @ 10:25 by Mahesh Mahan MD) Hyperlipidemia Obstructive sleep apnea on CPAP Type 2 diabetes mellitus Family History Family History (Updated 01/15/25 @ 10:23 by Mahesh Mahan MD) Other Breast cancer Pertinent family history: Per patient, several female family members have breast cancer and they are positive for BRCA gene. Social History Social History Smoked in Last 30 Days: No Use of substances other than those prescribed or required for medical reasons: No Advance Directives: No Advance Directives Information Provided: No Meds Allergies Allergy/AdvReac Type Severity Reaction Status Date / Time No Known Allergies Allergy Verified 01/14/25 18:26 Active Medications: Current Medications Acetaminophen (Acetaminophen 325 Mg Tablet) 975 mg PO Q6H PRN PRN Reason: Pain, Mild 1-3,fever,headache Calcium Carbonate (Calcium Carbonate 750 Mg Tab.Chew) 750 mg PO Q4H PRN PRN Reason: Heartburn Dextrose (Dextrose 50 % 25 Gm/50 Ml Syringe) 25 gm IVPUSH Q15M PRN; Protocol PRN Reason: per Hypoglycemia Standing Ord. Glucose (Glucose Gel 15 Gm Gel..Gram.) 15 gm PO Q15M PRN; Protocol PRN Reason: per Hypoglycemia Standing Ord. Heparin Sodium (Porcine) (Heparin Sodium,Porcine 5,000 Unit/Ml Vial) 4,200 unit 40 unit/kg (4200 unit) IVPUSH PROTOCOL BOLUS PRN; Protocol PRN Reason: 40 unit/kg - Heparin Protocol Heparin Sodium (Porcine) (Heparin Sodium,Porcine 5,000 Unit/Ml Vial) 8,400 unit 80 unit/kg (8400 unit) IVPUSH PROTOCOL BOLUS PRN; Protocol PRN Reason: 80 unit/kg - Heparin Protocol Piperacillin Sod/Tazobactam (Sod 3.375 gm/ Sodium Chloride) 50 mls @ 100 mls/hr IV Q6H [facility] Last Infusion: 01/15/25 09:00 Dose: Infused Heparin Sodium/Sodium Chloride (Heparin Sodium,Porcine/1/2ns) 25,000 unit in 250 mls @ 0 mls/hr IVCONT .Q0M XAVIER; Protocol Last Admin: 01/15/25 09:25 Dose: 9.5 units/kg/hr, 10 mls/hr Insulin Human Lispro (Insulin Lispro 100 Unit/Ml 3 Ml Vial) 0 unit SUBCUT QIDACHS [facility]; Protocol Last Admin: 01/15/25 07:53 Dose: 2 unit Magnesium Hydroxide (Milk Of Magnesia 30 Ml Oral.Susp) 30 ml PO DAILY PRN PRN Reason: Constipation Melatonin (Melatonin 3 Mg Tablet) 6 mg PO BEDTIME PRN PRN Reason: Insomnia Sodium Chloride (0.9 % Sodium Chloride Flush 3 Ml Syringe) 3 ml [facility] [place] Last Admin: 01/15/25 07:53 Dose: 3 ml Home Medications ?Medication ?Instructions ?Recorded ?Confirmed ?Last Taken ?Type aripiprazole 2 mg tablet 2 mg PO DAILY 01/15/25 Unkn own History atorvastatin 40 mg tablet 40 mg PO DAILY 01/15/25 Unk nown History bupropion HCl 300 mg 24 hr tablet, 300 mg PO DAILY Unknown History extended release cyanocobalamin (vitamin B-12) 1,000 mcg PO DAILY 01/15 Unknown History 1,000 mcg tablet diclofenac sodium 1 % topical gel 1 ea topical QID Unknown History empagliflozin 12.5 mg-metformin 1 tab PO BID 01/15/25 Unknown History 1,000 mg tablet (Synjardy) finasteride 5 mg tablet 5 mg PO DAILY 01/15/25 Unkn own History hydroxyzine HCl 25 mg tablet 25 mg PO TID 01/15/25 Un known History insulin glargine 100 unit/mL (3 unit subcut 01/15/25 Unknown History mL) subcutaneous pen (Lantus Solostar U-100 Insulin) lidocaine 5 % topical patch 1 patch topical DAILY 12/20 11/12 Unknown History lisinopril 2.5 mg tablet 2.5 mg PO DAILY 01/15/25 Un known History lorazepam 0.5 mg tablet 0.5 mg PO DAILY 01/15/25 Un known History methylphenidate HCl 30 mg biphasic 30 mg PO DAILY 12/20 11/12 Unknown History 50-50 capsule,extended release semaglutide 0.25 mg or 0.5 mg (2 mg subcut QWEEK 01/15 Unknown History mg/3 mL) subcutaneous pen injector (Ozempic) tamsulosin 0.4 mg capsule 0.4 mg PO DAILY 01/15/25 Un known History tirzepatide 15 mg/0.5 mL mg subcut 01/15/25 Unknown History subcutaneous pen injector (Mounjaro) venlafaxine 150 mg 150 mg PO BID 01/15/25 Unkn own History capsule,extended release 24 hr zolpidem 10 mg tablet 10 mg PO BEDTIME PRN Sleep 1 Unknown History Physical Exam 2 Vital Signs: Vital Signs: Last Vital Signs Temp 98.6 F 01/15/25 07:55 Pulse 98 01/15/25 09:00 Resp 21 H 01/15/25 09:00 BP 127/60 01/15/25 09:00 Pulse Ox 97 01/15/25 07:55 O2 Del Method Room Air 01/15/25 07:55 O2 Flow Rate 2 01/14/25 20:38 Oxygen Flow Rate 2 01/14/25 18:41 BMI result Body Mass Index 31.5 Const: General: comfortable and no acute distress O rientation/consciousness: patient oriented x3 HEENT: Other: Unremarkable Head: Yes normal to inspection Neck: Neck: Yes normal visual inspection Chest: Chest palpation & inspection: normal inspection of the chest Resp: Auscultation: clear to auscultation bilaterally Cardio: Palpation: normal PMI Heart sounds: S1 normal heart sound present, S2 normal heart sound present, no gallops, no murmurs and no rubs GI: Palpation (GI): Soft to palpation Back/Spine/Pelvis: Other: unremarkable Skin: General skin exam: no rashes or lesions noted Neuro: General: patient oriented x3 Extrem: General: Yes normal to inspection Psych: Mental Status: mental status grossly normal Objective Labs and Meds 01/15/25 08:22 01/15/25 06:55 Lab results: Laboratory Results - last 24 hr 01/14/25 01/14/25 01/14/25 18:19 18:39 18:43 WBC 11.6 H RBC 3.99 L Hgb 12.1 L Hct 36.1 L MCV 90.5 MCH 30.3 MCHC 33.5 RDW 14.2 Plt Count 236 MPV 9.3 L Immature Gran % (Auto) Cancelled Neut % (Auto) Cancelled Lymph % (Auto) Cancelled [place] % (Auto) Cancelled Eos % (Auto) Cancelled Baso % (Auto) Cancelled Lymph # (Auto) Cancelled [place] # (Auto) Cancelled Eos # (Auto) Cancelled Baso # (Auto) Cancelled Abs Immat Gran (auto) Cancelled Absolute Neuts (auto) Cancelled Absolute Nucleated RBC 0.000 Nucleated RBC % (auto) 0.0 Neutrophils % (Manual) 85 H Band Neutrophils % 8 H Lymphocytes % (Manual) 3 L Monocytes % (Manual) 2 Metamyelocytes % 2 Abs Neuts (Manual) 10.8 H Lymphocytes # (Manual) 0.3 L Monocytes # (Manual) 0.2 Metamyelocytes # 0.2 Toxic Vacuolation PRESENT Platelet Estimate NORMAL Plt Morphology Comment NORMAL RBC Morphology NOTED Macrocytosis 1+ (5-14) Smear Tech's Comments MANUAL DIFF PT 13.7 H INR 1.2 H aPTT Heparin Protocol VBG pH VBG pCO2 VBG pO2 VBG HCO3 VBG O2 Saturation VBG Base Excess Sodium 139 Potassium 3.8 Chloride 107 Carbon Dioxide 22 Anion Gap 14 BUN 21 H Creatinine 1.58 H Estim Creat Clear Calc 57.6 Estimated GFR 44 POC Glucose 159 H Random Glucose 152 H Estimat Average Glucose Hemoglobin A1c % Lactic Acid 1.8 Calcium 8.9 Magnesium 2.0 Total Bilirubin 1.0 AST 45 H ALT 31 Alkaline Phosphatase 88 Troponin I High Sens 103.1 H* Total Protein 7.0 Albumin 3.8 Urine Color Urine Appearance Urine pH Ur Specific Plush Urine Protein Urine Glucose (UA) Urine Ketones Urine Blood Urine Nitrite Ur Leukocyte Esterase Urine RBC Urine WBC Ur Squamous Epith Cells Urine Bacteria Hyaline Casts COVID-19 (JAMARCUS) Negative COVID-19 Clin Com See Note Influenza Type A (PEYTON) Negative Influenza Type B (PEYTON) Negative Influenza A & B Note See Note 01/14/25 01/14/25 01/14/25 18:47 19:45 21:44 WBC RBC Hgb Hct MCV MCH MCHC RDW Plt Count MPV Immature Gran % (Auto) Neut % (Auto) Lymph % (Auto) [place] % (Auto) Eos % (Auto) Baso % (Auto) Lymph # (Auto) [place] # (Auto) Eos # (Auto) Baso # (Auto) Abs Immat Gran (auto) Absolute Neuts (auto) Absolute Nucleated RBC Nucleated RBC % (auto) Neutrophils % (Manual) Band Neutrophils % Lymphocytes % (Manual) Monocytes % (Manual) Metamyelocytes % Abs Neuts (Manual) Lymphocytes # (Manual) Monocytes # (Manual) Metamyelocytes # Toxic Vacuolation Platelet Estimate Plt Morphology Comment RBC Morphology Macrocytosis Smear Tech's Comments PT INR aPTT Heparin Protocol VBG pH 7.45 H VBG pCO2 32 VBG pO2 106 VBG HCO3 23 VBG O2 Saturation 99.0 VBG Base Excess -0.2 Sodium Potassium Chloride Carbon Dioxide Anion Gap BUN Creatinine Estim Creat Clear Calc Estimated GFR POC Glucose Random Glucose Estimat Average Glucose Hemoglobin A1c % Lactic Acid Calcium Magnesium Total Bilirubin AST ALT Alkaline Phosphatase Troponin I High Sens 124.7 H* Total Protein Albumin Urine Color Dark Yellow Urine Appearance Clear Urine pH 5.5 Ur Specific Plush 1.015 Urine Protein Negative Urine Glucose (UA) Negative Urine Ketones Negative Urine Blood Moderate (2+) H Urine Nitrite Positive H Ur Leukocyte Esterase Moderate (2+) H Urine RBC 6-10 H Urine WBC 21-50 H Ur Squamous Epith Cells 0-2 Urine Bacteria 2+ Hyaline Casts 0-2 COVID-19 (JAMARCUS) COVID-19 Clin Com Influenza Type A (PEYTON) Influenza Type B (PEYTON) Influenza A & B Note 01/15/25 01/15/25 01/15/25 06:55 07:41 08:22 WBC 13.6 H 13.3 H RBC 3.47 L 3.48 L Hgb 10.6 L 10.7 L Hct 31.9 L 32.5 L MCV 91.9 93.4 MCH 30.5 30.7 MCHC 33.2 32.9 RDW 14.6 14.6 Plt Count 209 196 MPV 9.3 L 9.4 Immature Gran % (Auto) 0.7 H Neut % (Auto) 91.3 H Lymph % (Auto) 3.3 L [place] % (Auto) 4.6 Eos % (Auto) 0.0 Baso % (Auto) 0.1 Lymph # (Auto) 0.5 L [place] # (Auto) 0.6 Eos # (Auto) 0.0 Baso # (Auto) 0.0 Abs Immat Gran (auto) 0.09 H Absolute Neuts (auto) 12.4 H Absolute Nucleated RBC 0.000 0.000 Nucleated RBC % (auto) 0.0 0.0 Neutrophils % (Manual) Band Neutrophils % Lymphocytes % (Manual) Monocytes % (Manual) Metamyelocytes % Abs Neuts (Manual) Lymphocytes # (Manual) Monocytes # (Manual) Metamyelocytes # Toxic Vacuolation Platelet Estimate Plt Morphology Comment RBC Morphology Macrocytosis Smear Tech's Comments VERIFIED PT 15.6 H INR 1.4 H aPTT Heparin Protocol 25.5 L VBG pH VBG pCO2 VBG pO2 VBG HCO3 VBG O2 Saturation VBG Base Excess Sodium 144 Potassium 3.9 Chloride 117 H Carbon Dioxide 20 L Anion Gap 11 L BUN 21 H Creatinine 0.96 Estim Creat Clear Calc 94.8 Estimated GFR > 60 POC Glucose 188 H Random Glucose 197 H Estimat Average Glucose 117 Hemoglobin A1c % 5.7 Lactic Acid 1.6 Calcium 8.1 L D Magnesium 2.2 Total Bilirubin AST ALT Alkaline Phosphatase Troponin I High Sens 58544.5 H* D Total Protein Albumin Urine Color Urine Appearance Urine pH Ur Specific Plush Urine Protein Urine Glucose (UA) Urine Ketones Urine Blood Urine Nitrite Ur Leukocyte Esterase Urine RBC Urine WBC Ur Squamous Epith Cells Urine Bacteria Hyaline Casts COVID-19 (JAMARCUS) COVID-19 Clin Com Influenza Type A (PEYTON) Influenza Type B (PEYTON) Influenza A & B Note ECG Interpretation: EKG with sinus rhythm at 87/Min; mild FL prolongation to 208 milliseconds. The current EKG from this morning is not in EMR but in that study no clear ST-T changes to suggest ischemia. FL interval is prolonged. Assessment and Plan (1) NSTEMI (non-ST elevated myocardial infarction): Status: Acute Plan Clinically, patient has got no chest pain. Troponin levels are 103, 124 and 11,141. Overall, there is a clear exponential increase in troponins suggestive of NSTEMI. He has got no active chest pain or ischemic EKG findings. Suspect this is demand related type 2 OH related to medical issues. He will need IV heparin drip, aspirin, statins. Small dose of beta-susan may be okay but his FL is prolonged and may not be able to tolerate much. Echocardiogram for cardiac function. Otherwise, he needs a diagnostic catheterization and we will need to be transferred to [facility] for the same. Procedures Date of Service Date of Service: 01/15/25
--- NOTE | 2025-01-15 10:40 | MHC.CM.PN ---
CM met with Patient at bedside, in the ED,and addressed IMM with him, providing Patient with the original and a copy will be placed on the chart. Patient lives alone in a 2 family house on the second floor and he was using a cane to assist with mobility. Patient states that he cannot walk now, and he may benefit from a PT Eval to assist with disposition. CM has initiated and will follow for dc planning. PCP/[employer] is Tammy Mancia and Patient's Mother, Niece, or Sister/HCP/Cat will transport to home at dc.
--- NOTE | 2025-01-15 10:49 | MHC.CM.PN ---
CM met with Patient at bedside, in the ED, and addressed IMM verbally with Patient (she did not want to take her arms from under the covers to sign); the original was given to Patient and a copy will be placed on the chart. Patient lives alone in elderly housing/apartment and shed required no device to assist with ambulation. Nakia is active with [facility] and [facility] for [facility]. Home/resume said services is the Patient's goal and CM has initiated and will follow for dc planning. PCP is Dr. Clark and Son/HCP/West or Sister to transport to home at dc.
--- NOTE | 2025-01-15 11:03 | PHA.MEDREC ---
Pharmacy Consult ? Medication Reconciliation Pharmacy has completed the medication reconciliation.med rec complete, utilized list from [facility]
[2025-01-15 12:08] LABS: Glucose, Whole Blood 153 mg/dL (60-115)
--- NOTE | 2025-01-15 13:24 | PM.DS ---
DS: Providers Provider Date of Service: 01/15/25 Date of admission: 01/14/25 22:03 Date of discharge: 01/15/25 Primary care physician: Tammy Mancia NP Consults: 01/14/25 23:34 Consult to Cardiology Routine Consulting Provider: [facility] Reason for consultation: Elevated troponin Has provider been notified: No Attending physician on discharge: Jose Antonio Centeno Discharging clinician: Jose Antonio Centeno DS: Transfer Hospital Acceptance Reason for Transfer: cardiac cath Name of Facility: [facility] [place] DS: Diagnosis Discharge Diagnosis (1) NSTEMI (non-ST elevated myocardial infarction): Status: Acute DS: Summary Status at Discharge Cognitive/behavioral status at discharge: 64-year-old male with past medical history significant for T2 dm, BPH, chronic back pain/lumbar stenosis, HLD, mood disorder and CAMILA on CPAP who presented to the ED via ambulance from rehab center after having episodes of fever and ambulatory dysfunction. Vital signs on arrival with BP 98/45, temperature 103.3 degrees. Leukocytosis, no lactic acidosis. Patient's initial troponin 103, 2nd 1 was 24.4, 3rd troponin 93408.5. Patient was placed on a heparin drip, stat EKG ordered that showed no ST segment elevations. Cardiology consulted, suggested on transferring to [facility] for cardiac catheterization. Sepsis secondary to UTI. Telemetry. Pulse oximetry. Continue empiric IV antibiotic therapy with Zosyn. Continue IV fluids NSTEMI: continue w/ IV heparin drip, ASA. BB, Lipitor 80mg, monitor for any chest pain, transfer to [facility] [place] for cath. Urinary retention. Indwelling urinary catheter placement in the ED. Continue tamsulosin. Acute kidney injury, likely multifactorial: Sepsis, urinary retention, NSTEMI. Indwelling urinary catheter placed in the ED. Continue to monitor renal function. Avoid nephrotoxic agents. BPH. Continue home meds when able Mood disorder. Continue home meds. Type 2 diabetes mellitus. BG checks before meals at bedtime. Insulin sliding scale. Diabetic diet Hyperlipidemia. Continue atorvastatin. CAMILA. Nocturnal CPAP. Time Attestation Discharge Coordination Time (in mins): greater than 35 minutes Quality: Safe Use of Opioids Does Pt have an Active Cancer Diagnosis on the Problem List?: No Quality: Stroke Does the patient have a stroke diagnosis?: No Physical Exam Exam: Exam: General: AxOx3, anxious Head: AT/NC ENT: Moist mucous membranes Neck: supple CVS; RRR, S1 S2 normal Lungs: Clear bilateral breath sounds, no wheezes or crackles Abd: Soft non tender, non distended Ext: No edema and no calf tenderness MSK: moving all 4 limbs Skin: No cyanosis or edema Psych: Cooperative with exam Neurology: no focal deficit Vital Signs: Vital Signs: Last Vital Signs Temp 98.6 F 01/15/25 07:55 Pulse 89 01/15/25 12:17 Resp 13 01/15/25 12:17 BP 125/62 01/15/25 12:17 Pulse Ox 97 01/15/25 12:17 O2 Del Method Room Air 01/15/25 12:17 O2 Flow Rate 2 01/14/25 20:38 Oxygen Flow Rate 2 01/14/25 18:41 BMI result Body Mass Index 31.5 DS: Data Data Completed and Pending Labs on day of discharge: Laboratory Results - last 24 hr 01/14/25 01/14/25 01/14/25 18:19 18:39 18:43 WBC 11.6 H RBC 3.99 L Hgb 12.1 L Hct 36.1 L MCV 90.5 MCH 30.3 MCHC 33.5 RDW 14.2 Plt Count 236 MPV 9.3 L Immature Gran % (Auto) Cancelled Neut % (Auto) Cancelled Lymph % (Auto) Cancelled Buchanan % (Auto) Cancelled Eos % (Auto) Cancelled Baso % (Auto) Cancelled Lymph # (Auto) Cancelled Buchanan # (Auto) Cancelled Eos # (Auto) Cancelled Baso # (Auto) Cancelled Abs Immat Gran (auto) Cancelled Absolute Neuts (auto) Cancelled Absolute Nucleated RBC 0.000 Nucleated RBC % (auto) 0.0 Neutrophils % (Manual) 85 H Band Neutrophils % 8 H Lymphocytes % (Manual) 3 L Monocytes % (Manual) 2 Metamyelocytes % 2 Abs Neuts (Manual) 10.8 H Lymphocytes # (Manual) 0.3 L Monocytes # (Manual) 0.2 Metamyelocytes # 0.2 Toxic Vacuolation PRESENT Platelet Estimate NORMAL Plt Morphology Comment NORMAL RBC Morphology NOTED Macrocytosis 1+ (5-14) Smear Tech's Comments MANUAL DIFF PT 13.7 H INR 1.2 H aPTT Heparin Protocol VBG pH VBG pCO2 VBG pO2 VBG HCO3 VBG O2 Saturation VBG Base Excess Sodium 139 Potassium 3.8 Chloride 107 Carbon Dioxide 22 Anion Gap 14 BUN 21 H Creatinine 1.58 H Estim Creat Clear Calc 57.6 Estimated GFR 44 POC Glucose 159 H Random Glucose 152 H Estimat Average Glucose Hemoglobin A1c % Lactic Acid 1.8 Calcium 8.9 Magnesium 2.0 Total Bilirubin 1.0 AST 45 H ALT 31 Alkaline Phosphatase 88 Troponin I High Sens 103.1 H* Total Protein 7.0 Albumin 3.8 Urine Color Urine Appearance Urine pH Ur Specific M[place] Urine Protein Urine Glucose (UA) Urine Ketones Urine Blood Urine Nitrite Ur Leukocyte Esterase Urine RBC Urine WBC Ur Squamous Epith Cells Urine Bacteria Hyaline Casts COVID-19 (JAMARCUS) Negative COVID-19 Clin Com See Note Influenza Type A (PEYTON) Negative Influenza Type B (PEYTON) Negative Influenza A & B Note See Note 01/14/25 01/14/25 01/14/25 18:47 19:45 21:44 WBC RBC Hgb Hct MCV MCH MCHC RDW Plt Count MPV Immature Gran % (Auto) Neut % (Auto) Lymph % (Auto) Buchanan % (Auto) Eos % (Auto) Baso % (Auto) Lymph # (Auto) Buchanan # (Auto) Eos # (Auto) Baso # (Auto) Abs Immat Gran (auto) Absolute Neuts (auto) Absolute Nucleated RBC Nucleated RBC % (auto) Neutrophils % (Manual) Band Neutrophils % Lymphocytes % (Manual) Monocytes % (Manual) Metamyelocytes % Abs Neuts (Manual) Lymphocytes # (Manual) Monocytes # (Manual) Metamyelocytes # Toxic Vacuolation Platelet Estimate Plt Morphology Comment RBC Morphology Macrocytosis Smear Tech's Comments PT INR aPTT Heparin Protocol VBG pH 7.45 H VBG pCO2 32 VBG pO2 106 VBG HCO3 23 VBG O2 Saturation 99.0 VBG Base Excess -0.2 Sodium Potassium Chloride Carbon Dioxide Anion Gap BUN Creatinine Estim Creat Clear Calc Estimated GFR POC Glucose Random Glucose Estimat Average Glucose Hemoglobin A1c % Lactic Acid Calcium Magnesium Total Bilirubin AST ALT Alkaline Phosphatase Troponin I High Sens 124.7 H* Total Protein Albumin Urine Color Dark Yellow Urine Appearance Clear Urine pH 5.5 Ur Specific Maysel 1.015 Urine Protein Negative Urine Glucose (UA) Negative Urine Ketones Negative Urine Blood Moderate (2+) H Urine Nitrite Positive H Ur Leukocyte Esterase Moderate (2+) H Urine RBC 6-10 H Urine WBC 21-50 H Ur Squamous Epith Cells 0-2 Urine Bacteria 2+ Hyaline Casts 0-2 COVID-19 (JAMARCUS) COVID-19 Clin Com Influenza Type A (PEYTON) Influenza Type B (PEYTON) Influenza A & B Note 01/15/25 01/15/25 01/15/25 06:55 07:41 08:22 WBC 13.6 H 13.3 H RBC 3.47 L 3.48 L Hgb 10.6 L 10.7 L Hct 31.9 L 32.5 L MCV 91.9 93.4 MCH 30.5 30.7 MCHC 33.2 32.9 RDW 14.6 14.6 Plt Count 209 196 MPV 9.3 L 9.4 Immature Gran % (Auto) 0.7 H Neut % (Auto) 91.3 H Lymph % (Auto) 3.3 L Buchanan % (Auto) 4.6 Eos % (Auto) 0.0 Baso % (Auto) 0.1 Lymph # (Auto) 0.5 L Buchanan # (Auto) 0.6 Eos # (Auto) 0.0 Baso # (Auto) 0.0 Abs Immat Gran (auto) 0.09 H Absolute Neuts (auto) 12.4 H Absolute Nucleated RBC 0.000 0.000 Nucleated RBC % (auto) 0.0 0.0 Neutrophils % (Manual) Band Neutrophils % Lymphocytes % (Manual) Monocytes % (Manual) Metamyelocytes % Abs Neuts (Manual) Lymphocytes # (Manual) Monocytes # (Manual) Metamyelocytes # Toxic Vacuolation Platelet Estimate Plt Morphology Comment RBC Morphology Macrocytosis Smear Tech's Comments VERIFIED PT 15.6 H INR 1.4 H aPTT Heparin Protocol 25.5 L VBG pH VBG pCO2 VBG pO2 VBG HCO3 VBG O2 Saturation VBG Base Excess Sodium 144 Potassium 3.9 Chloride 117 H Carbon Dioxide 20 L Anion Gap 11 L BUN 21 H Creatinine 0.96 Estim Creat Clear Calc 94.8 Estimated GFR > 60 POC Glucose 188 H Random Glucose 197 H Estimat Average Glucose 117 Hemoglobin A1c % 5.7 Lactic Acid 1.6 Calcium 8.1 L D Magnesium 2.2 Total Bilirubin AST ALT Alkaline Phosphatase Troponin I High Sens 76122.5 H* D Total Protein Albumin Urine Color Urine Appearance Urine pH Ur Specific M[place] Urine Protein Urine Glucose (UA) Urine Ketones Urine Blood Urine Nitrite Ur Leukocyte Esterase Urine RBC Urine WBC Ur Squamous Epith Cells Urine Bacteria Hyaline Casts COVID-19 (JAMARCUS) COVID-19 Clin Com Influenza Type A (PEYTON) Influenza Type B (PEYTON) Influenza A & B Note 01/15/25 12:05 WBC RBC Hgb Hct MCV MCH MCHC RDW Plt Count MPV Immature Gran % (Auto) Neut % (Auto) Lymph % (Auto) Buchanan % (Auto) Eos % (Auto) Baso % (Auto) Lymph # (Auto) Buchanan # (Auto) Eos # (Auto) Baso # (Auto) Abs Immat Gran (auto) Absolute Neuts (auto) Absolute Nucleated RBC Nucleated RBC % (auto) Neutrophils % (Manual) Band Neutrophils % Lymphocytes % (Manual) Monocytes % (Manual) Metamyelocytes % Abs Neuts (Manual) Lymphocytes # (Manual) Monocytes # (Manual) Metamyelocytes # Toxic Vacuolation Platelet Estimate Plt Morphology Comment RBC Morphology Macrocytosis Smear Tech's Comments PT INR aPTT Heparin Protocol VBG pH VBG pCO2 VBG pO2 VBG HCO3 VBG O2 Saturation VBG Base Excess Sodium Potassium Chloride Carbon Dioxide Anion Gap BUN Creatinine Estim Creat Clear Calc Estimated GFR POC Glucose 153 H Random Glucose Estimat Average Glucose Hemoglobin A1c % Lactic Acid Calcium Magnesium Total Bilirubin AST ALT Alkaline Phosphatase Troponin I High Sens Total Protein Albumin Urine Color Urine Appearance Urine pH Ur Specific Maysel Urine Protein Urine Glucose (UA) Urine Ketones Urine Blood Urine Nitrite Ur Leukocyte Esterase Urine RBC Urine WBC Ur Squamous Epith Cells Urine Bacteria Hyaline Casts COVID-19 (JAMARCUS) COVID-19 Clin Com Influenza Type A (PEYTON) Influenza Type B (PEYTON) Influenza A & B Note Preliminary micro results at discharge 01/14/25 22:22 Urine Culture - Preliminary Urine clean catch - Clean Catch Midstream Culture too young to evaluate. 01/14/25 18:43 Blood Culture - Preliminary Blood - Venous Prelim: GPC Gram Stain only Discharge Plan Discharge Anticipated Discharge Date/Time: 01/15/25 13:10 Patient Disposition: Xfer Acute Care Hospital Discharge Diagnosis: NSTEMI, UTI Referrals: Tammy Mancia NP [Primary Care Provider, Medical] - 1 Week Discharge Medications: New piperacillin-tazobactam 3.375 gram Recon Soln 3.375 g IV Q6H Qty: 10 0RF heparin(porcine) in 0.45% NaCl 25,000 unit/250 mL Parenteral Solution 25,000 unit continuous IV infusion .Q0M Qty: 6000 0RF acetaminophen 325 mg Tablet 975 mg PO Q6H PRN (Reason: Pain, Mild 1-3,Fever,Headache) Qty: 30 0RF aspirin 325 mg Tablet 325 mg PO DAILY Qty: 20 0RF insulin lispro [Admelog U-100 Insulin lispro] 100 unit/mL Solution See Protocol subcut QIDACHS Qty: 3 0RF Protocol: Insulin Correction Scale Less than or equal to 110 ---- Give (units): 0 111 to 150 Give (units): 0 151 to 200 Give (units): 2 201 to 250 Give (units): 4 251 to 300 Give (units): 6 301 to 350 Give (units): 8 Greater than 350 Give (units): 10 Call MD if Blood Glucose > : 350 heparin (porcine) 5,000 unit/mL Solution 4,200 unit IVPUSH PROTOCOL BOLUS PRN (Reason: 40 Unit/Kg - Heparin Protocol) Qty: 25 0RF heparin (porcine) 5,000 unit/mL Solution 8,400 unit IVPUSH PROTOCOL BOLUS PRN (Reason: 80 Unit/Kg - Heparin Protocol) Qty: 25 0RF metoprolol tartrate 25 mg Tablet 25 mg PO BID Qty: 14 0RF Protocol: Hold for SBP/HR < HOLD for SBP < : 90 HOLD for HR < : 60 Continued venlafaxine 150 mg capsule,extended release 24hr 300 mg PO DAILY cyanocobalamin (vitamin B-12) 1,000 mcg tablet 1,000 mcg PO DAILY tamsulosin 0.4 mg capsule 0.4 mg PO BEDTIME hydroxyzine HCl 25 mg tablet 25 mg PO Q8H PRN (Reason: Anxiety) Rx Instructions: ordered 01/09/25 end date 01/23/25 zolpidem 10 mg tablet 10 mg PO BEDTIME PRN (Reason: Sleep) bupropion HCl 300 mg tablet extended release 24 hr 300 mg PO DAILY aripiprazole 2 mg tablet 2 mg PO DAILY cholecalciferol (vitamin D3) 25 mcg (1,000 unit) Tablet 25 mcg PO DAILY lidocaine 4 % Adhesive Patch,Medicated 2 patch TOPICAL DAILY Protocol: Apply to: Apply to: left and right knee methocarbamol 500 mg Tablet 500 mg PO Q8H PRN (Reason: Muscle Spasm) nystatin 100,000 unit/gram Powder 1 appl TOPICAL BID Protocol: Apply to: Apply to: affected area oxycodone 5 mg Tablet 5 mg PO Q6H PRN (Reason: Pain) Held lisinopril 2.5 mg tablet 2.5 mg PO DAILY Hold Instructions: Resume on 01/23/25. Discontinued finasteride 5 mg tablet 5 mg PO DAILY insulin glargine [Lantus Solostar U-100 Insulin] 100 unit/mL (3 mL) insulin pen 38 unit subcut BEDTIME diclofenac sodium 1 % gel 1 ea topical QID Protocol: Apply to: Apply to: bilateral knees/neck acetaminophen 325 mg Tablet 650 mg PO Q6H PRN (Reason: pain/temp > 101) bisacodyl 10 mg Suppository 10 mg IL DAILY PRN (Reason: Constipation) enoxaparin 30 mg/0.3 mL Syringe 30 mg SUBCUT DAILY erythromycin 5 mg/gram (0.5 %) Ointment 1 appl OPHTHALMIC-RIGHT QID Rx Instructions: x 5 days started 01/13/25 end date 01/18/25 Fleet Enema 19-7 gram/118 mL Enema 118 ml IL DAILY PRN (Reason: Constipation) Rx Instructions: use if no results from bisacodyl suppository nitrofurantoin monohyd/m-cryst [Macrobid] 100 mg Capsule 100 mg PO BID Rx Instructions: prescribed 01/14/25 for 7 days must administer with a meal/food metoprolol tartrate 25 mg Tablet 25 mg PO BID magnesium hydroxide [Milk of Magnesia] 400 mg/5 mL Suspension 30 ml PO Q24H PRN (Reason: Constipation) Rx Instructions: give 30 ml q 24 hours if no bm in 3 days phenazopyridine 100 mg Tablet 100 mg PO TID Rx Instructions: prescribed x 3 days 01/14/25 to 01/17/25 Tatum lee 250 mg Capsule 250 mg PO BID Rx Instructions: prescribed x 7 days 01/14/25 to 01/21/25 Discharge Orders: Discharge Order (Routine); Ordered 01/15/25 Ordered By: Jose Antonio Centeno Activity on Discharge: As tolerated Stand Alone Forms: Patient Portal Discharge page Print Language: [place] Islander Care Plan Goals: transfer to [facility] [place] for heart cath given NSTEMI Health Concerns: NSTEMI and UTI Plan of Treatment: continue heparin drip, ASA, BB and high intensity statin ordered. continue w/ pain control Assessment: 64-year-old male with past medical history significant for T2 dm, BPH, chronic back pain/lumbar stenosis, HLD, mood disorder and CAMILA on CPAP who presented to the ED via ambulance from rehab center after having episodes of fever and ambulatory dysfunction. Vital signs on arrival with BP 98/45, temperature 103.3 degrees. Leukocytosis, no lactic acidosis. Patient's initial troponin 103, 2nd 1 was 24.4, 3rd troponin 45454.5. Patient was placed on a heparin drip, stat EKG ordered that showed no ST segment elevations. Cardiology consulted, suggested on transferring to [facility] for cardiac catheterization. Patient Instructions: Heart Attack (DC)
--- NOTE | 2025-01-15 13:38 | MHC.CM.PN ---
Patient will be transferred to [facility].
[2025-01-15 14:33] LABS: PTT Heparin Drip 34.2 SEC (53-77.9)
[2025-01-15 16:34] LABS: Glucose, Whole Blood 186 mg/dL (60-115)
[2025-01-15 20:02] LABS: Glucose, Whole Blood 207 mg/dL (60-115)
[2025-01-15 22:30] LABS: PTT Heparin Drip 42.1 SEC (53-77.9)
[2025-01-16] VITALS (7 sets, daily range): BP systolic 119–137; BP diastolic 55–71; PULSE 61–73; RESP 16–18; TEMP 36.7–37.4; O2SAT 93–97
[2025-01-16] MEDS: Heparin Sodium,Porcine/1/2NS 25,000 UNIT/250 ML IV.SOLN 16.32 UNIT IVCONT (03:23)
[2025-01-16 05:54] LABS: Hematocrit 30.0 % (42.0-52.0); Hemoglobin 9.8 g/dl (14.0-18.0); Mean Corpuscular HGB Conc 32.7 g/dl (31.0-36.0); Mean Corpuscular Hemoglobin 30.2 pg (27.0-33.0); Mean Corpuscular Volume 92.3 fL (80.0-98.0); NRBC Abs Auto 0.000 X10*3/uL (0.0-0.012); NRBC Pct Auto 0.0 /100WBC (0.0-0.2); Platelet Count 176 X10*3/uL (160-400); Red Blood Count 3.25 X10*6/uL (4.60-5.80); White Blood Count 6.7 X10*3/uL (4.8-10.8)
[2025-01-16 06:10] LABS: INTERNATIONAL NORM RATIO 1.3 (0.9-1.1); Prothrombin Time 15.2 SEC (10.9-12.4)
[2025-01-16 06:12] LABS: PTT Heparin Drip 88.5 SEC (53-77.9)
[2025-01-16 07:47] LABS: Glucose, Whole Blood 144 mg/dL (60-115)
--- NOTE | 2025-01-16 09:48 | PM.PNCARD ---
Subjective Subjective Date of Service: 01/16/25 Interval history: Patient states he feels okay. He does not have any chest pain or clear-cut cardiac symptoms. Awaiting bed at [facility]. Review of Systems Review of Systems Yes all other systems are reviewed and are negative Constitutional: Reports as per HPI and Reports no additional constitutional complaints Eyes: Reports as per HPI and Denies no additional eye complaints Denies system reviewed and no additional complaints, except as documented and Reports as per HPI Cardiovascular: Reports as per HPI, Reports no additional cardiovascular complaints, Denies acrocyanosis, Denies cool extremities, Denies chest pain, Denies leg edema, Denies lightheadedness, Denies palpitations and Denies dyspnea Respiratory: Reports as per HPI, Denies no additional respiratory complaints and Denies dyspnea Gastrointestinal: Reports as per HPI and Denies no additional gastrointestinal complaints Genitourinary: Reports no additional male genitourinary complaints and Reports as per HPI Musculoskeletal: Reports no additional musculoskeletal complaints and Reports as per HPI Skin/Breast: Reports system reviewed and no additional complaints, except as docu Reports system reviewed and no additional complaints, except as documented and Reports as per HPI Psychiatric: Reports no additional psychiatric complaints and Reports as per HPI Endocrine: Reports no additional endocrine complaints, Reports as per HPI and Denies palpitations Hematologic/Lymphatic: Reports no additional hematologic/lymphatic complaints and Reports as per HPI Allergic/Immunologic: Reports no additional allergic/immunologic complaints and Reports as per HPI Physical Exam Vital Signs: Last Vital Signs Temp 99.0 F 01/16/25 07:28 Pulse 72 01/16/25 07:28 Resp 18 01/16/25 07:28 BP 131/64 01/16/25 07:28 Pulse Ox 96 01/16/25 07:28 O2 Del Method CPAP 01/16/25 07:28 O2 Flow Rate 2 01/14/25 20:38 Oxygen Flow Rate 2 01/14/25 18:41 BMI result Body Mass Index 30.7 Const General: comfortable and no acute distress Orientation/consciousness: patient oriented x3 HEENT Other: Unremarkable Head: Yes normal to inspection Neck Neck: Yes normal visual inspection Chest Chest palpation & inspection: normal inspection of the chest Resp Auscultation: clear to auscultation bilaterally Cardio Palpation: normal PMI Heart sounds: S1 normal heart sound present, S2 normal heart sound present, no gallops, no murmurs and no rubs GI Palpation (GI): Soft to palpation Back/Spine/Pelvis Other: unremarkable Skin General skin exam: no rashes or lesions noted Neuro General: patient oriented x3 Extrem General: Yes normal to inspection Psych Mental Status: mental status grossly normal Objective Labs and Meds 01/16/25 05:31 01/15/25 06:55 Lab results: Laboratory Results - last 24 hr 01/15/25 01/15/25 01/15/25 12:05 14:16 16:28 WBC RBC Hgb Hct MCV MCH MCHC RDW Plt Count MPV Absolute Nucleated RBC Nucleated RBC % (auto) PT INR aPTT Heparin Protocol 34.2 L D POC Glucose 153 H 186 H 01/15/25 01/15/25 01/16/25 19:57 21:32 05:31 WBC 6.7 RBC 3.25 L Hgb 9.8 L Hct 30.0 L MCV 92.3 MCH 30.2 MCHC 32.7 RDW 14.6 Plt Count 176 MPV 9.5 Absolute Nucleated RBC 0.000 Nucleated RBC % (auto) 0.0 PT 15.2 H INR 1.3 H aPTT Heparin Protocol 42.1 L D 88.5 H D POC Glucose 207 H 01/16/25 07:44 WBC RBC Hgb Hct MCV MCH MCHC RDW Plt Count MPV Absolute Nucleated RBC Nucleated RBC % (auto) PT INR aPTT Heparin Protocol POC Glucose 144 H Progress Note: A&P Assessment and plan (1) NSTEMI (non-ST elevated myocardial infarction): Status: Acute Plan Clinically, pain-free. Peak troponin level is 11,141. Echocardiogram with LVEF of 55-60%. Basal inferior/mid inferior hypokinesis. On heparin drip, aspirin, beta-blockers and has received atorvastatin 80 mg daily. Continue this. Awaiting bed at [facility] for cardiac catheterization. Time Spent With Patient Time: Total time managing care of this patient today ____ minutes. Progress Note: Quality Stroke Does the patient have a stroke diagnosis?: No Procedures Date of Service Date of Service: 01/16/25
[2025-01-16] MEDS: Heparin Sodium,Porcine/1/2NS 25,000 UNIT/250 ML IV.SOLN 14.22 UNIT IVCONT (10:40)
[2025-01-16 11:36] LABS: Glucose, Whole Blood 183 mg/dL (60-115)
[2025-01-16 12:38] LABS: PTT Heparin Drip 68.7 SEC (53-77.9)
--- NOTE | 2025-01-16 13:45 | MHC.CM.PN ---
PT WILL BE AN ACUTE CARE TXFR ONCE BED AVAILABLE AT [facility].
--- NOTE | 2025-01-16 15:02 | P.PNIM_ITS ---
Subjective Subjective Date of Service: 01/16/25 Interval History: Patient seen examined at bedside this morning, patient states that he feels better, awaiting to be transferred to [facility] for catheterization. Patient mentions that he has been experiencing some right eye itchiness, as well as muscle spasms. Began to have possible HSV break out. Review of Systems Review of Systems: Yes all other systems are reviewed and are negative Physical Exam 2 Exam: Exam: General: AxOx3, No acute distress Head: AT/NC ENT: Moist mucous membranes, right eye erythema, no secretions noted Neck: supple CVS; RRR, S1 S2 normal Lungs: Clear bilateral breath sounds, no wheezes or crackles Abd: Soft non tender, non distended Ext: No edema and no calf tenderness MSK: moving all 4 limbs Skin: No cyanosis or edema Psych: Cooperative with exam Neurology: no focal deficit Vital Signs: Vital Signs: Last Vital Signs Temp 99.2 F 01/16/25 11:53 Pulse 62 01/16/25 11:53 Resp 18 01/16/25 11:53 BP 137/62 01/16/25 11:53 Pulse Ox 96 01/16/25 11:53 O2 Del Method Room Air 01/16/25 11:53 O2 Flow Rate 2 01/14/25 20:38 Oxygen Flow Rate 2 01/14/25 18:41 BMI result Body Mass Index 30.7 Objective Data Active Medications Acetaminophen (Acetaminophen 325 Mg Tablet) 975 mg PO Q6H PRN PRN Reason: Pain, Mild 1-3,fever,headache Last Admin: 01/15/25 13:26 Dose: 975 mg Documented By: ETHEL Artificial Tears (Artificial Tears 15 Ml Drops) 1 drop EYE-RIGHT Q4H PRN PRN Reason: Allergic Symptoms Aspirin (Aspirin 325 Mg Tablet) 325 mg PO DAILY [facility] Last Admin: 01/16/25 09:24 Dose: 325 mg Documented By: KYLAH Calcium Carbonate (Calcium Carbonate 750 Mg Tab.Chew) 750 mg PO Q4H PRN PRN Reason: Heartburn Dextrose (Dextrose 50 % 25 Gm/50 Ml Syringe) 25 gm IVPUSH Q15M PRN; Protocol PRN Reason: per Hypoglycemia Standing Ord. Glucose (Glucose Gel 15 Gm Gel..Gram.) 15 gm PO Q15M PRN; Protocol PRN Reason: per Hypoglycemia Standing Ord. Heparin Sodium (Porcine) (Heparin Sodium,Porcine 5,000 Unit/Ml Vial) 4,200 unit 40 unit/kg (4200 unit) IVPUSH PROTOCOL BOLUS PRN; Protocol PRN Reason: 40 unit/kg - Heparin Protocol Last Admin: 01/15/25 23:10 Dose: 4,200 unit Documented By: SHERRON Heparin Sodium (Porcine) (Heparin Sodium,Porcine 5,000 Unit/Ml Vial) 8,400 unit 80 unit/kg (8400 unit) IVPUSH PROTOCOL BOLUS PRN; Protocol PRN Reason: 80 unit/kg - Heparin Protocol Last Admin: 01/15/25 15:25 Dose: 8,400 unit Documented By: ETHEL Piperacillin Sod/Tazobactam (Sod 3.375 gm/ Sodium Chloride) 50 mls @ 100 mls/hr IV Q6H [facility] Last Infusion: 01/16/25 09:55 Dose: Infused Documented By: KYLAH Heparin Sodium/Sodium Chloride (Heparin Sodium,Porcine/1/2ns) 25,000 unit in 250 mls @ 0 mls/hr IVCONT .Q0M [facility]; Protocol Last Titration: 01/16/25 13:33 Dose: 13.5 units/kg/hr, 14.22 mls/hr Documented By: KYLAH Co-signed By: DESMOND Insulin Human Lispro (Insulin Lispro 100 Unit/Ml 3 Ml Vial) 0 unit SUBCUT QIDACHS [facility]; Protocol Last Admin: 01/16/25 11:55 Dose: 2 unit Documented By: KYLAH Magnesium Hydroxide (Milk Of Magnesia 30 Ml Oral.Susp) 30 ml PO DAILY PRN PRN Reason: Constipation Melatonin (Melatonin 3 Mg Tablet) 6 mg PO BEDTIME PRN PRN Reason: Insomnia Methocarbamol (Methocarbamol 500 Mg Tablet) 500 mg PO QID PRN PRN Reason: Muscle Spasm Metoprolol Tartrate (Metoprolol Tartrate 25 Mg Tablet) 25 mg PO BID [facility]; Protocol Last Admin: 01/16/25 09:24 Dose: 25 mg Documented By: KYLAH Sodium Chloride (0.9 % Sodium Chloride Flush 3 Ml Syringe) 3 ml IVFLUSH QSHIFT [facility] Last Admin: 01/16/25 15:00 Dose: Not Given Documented By: HO.PHANLYM Non-Admin Reason: IV Running Valacyclovir HCl (Valacyclovir Hcl 1,000 Mg Tablet) 1,000 mg PO BID [facility] Labs 01/16/25 05:31 01/15/25 06:55 Labs: Laboratory Results - last 24 hr 01/15/25 01/15/25 01/15/25 16:28 19:57 21:32 MCV MCH MCHC RDW Plt Count MPV Absolute Nucleated RBC Nucleated RBC % (auto) PT INR aPTT Heparin Protocol 42.1 L D POC Glucose 186 H 207 H 01/16/25 01/16/25 01/16/25 05:31 07:44 11:33 MCV 92.3 MCH 30.2 MCHC 32.7 RDW 14.6 Plt Count 176 MPV 9.5 Absolute Nucleated RBC 0.000 Nucleated RBC % (auto) 0.0 PT 15.2 H INR 1.3 H aPTT Heparin Protocol 88.5 H D POC Glucose 144 H 183 H 01/16/25 12:22 MCV MCH MCHC RDW Plt Count MPV Absolute Nucleated RBC Nucleated RBC % (auto) PT INR aPTT Heparin Protocol 68.7 D POC Glucose Microbiology Microbiology Results: Microbiology 01/14/25 22:22 Urine Culture - Preliminary Urine clean catch - Clean Catch Midstream Staphylococcus species 01/14/25 18:43 Blood Culture - Preliminary Blood - Venous Coag negative Staphylococcus 01/14/25 18:39 Blood Culture - Preliminary Blood - Venous Coag negative Staphylococcus Assessment and Plan (1) NSTEMI (non-ST elevated myocardial infarction): Status: Acute (2) Sepsis: Status: Acute (3) UTI (urinary tract infection): Status: Acute Plan 64-year-old male with past medical history significant for T2 dm, BPH, chronic back pain/lumbar stenosis, HLD, mood disorder and CAMILA on CPAP who presented to the ED via ambulance from rehab center after having episodes of fever and ambulatory dysfunction. Vital signs on arrival with BP 98/45, temperature 103.3 degrees. Leukocytosis, no lactic acidosis. Patient's initial troponin 103, 2nd 1 was 24.4, 3rd troponin 47751.5. Patient was placed on a heparin drip, stat EKG ordered that showed no ST segment elevations. Cardiology consulted, suggested on transferring to [facility] for cardiac catheterization. Sepsis secondary to UTI. Telemetry. Pulse oximetry. Continue empiric IV antibiotic therapy with Zosyn. Continue IV fluids NSTEMI: continue w/ IV heparin drip, ASA. BB, Lipitor 80mg, monitor for any chest pain, awaiting transfer to [facility] for cath. Urinary retention. Indwelling urinary catheter placement in the ED. Continue tamsulosin. Acute kidney injury, likely multifactorial: Sepsis, urinary retention, NSTEMI. Indwelling urinary catheter placed in the ED. Continue to monitor renal function. Avoid nephrotoxic agents. BPH. Continue home meds Mood disorder. Continue home meds. Type 2 diabetes mellitus. BG checks before meals at bedtime. Insulin sliding scale. Diabetic diet Hyperlipidemia. Continue atorvastatin. CAMILA. Nocturnal CPAP. 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
[2025-01-16 16:06] LABS: Glucose, Whole Blood 128 mg/dL (60-115)
[2025-01-16] MEDS: Artificial Tears 15 ML DROPS 1 DROP EYE-RIGHT (18:24)
[2025-01-16 18:45] LABS: PTT Heparin Drip 60.0 SEC (53-77.9)
[2025-01-16 21:29] LABS: Glucose, Whole Blood 187 mg/dL (60-115)
[2025-01-17 00:20] VITALS: RESP 16
[2025-01-17 03:18] VITALS: BP 121/61; PULSE 61; RESP 16; TEMP 37; O2SAT 95
[2025-01-17] MEDS: Heparin Sodium,Porcine/1/2NS 25,000 UNIT/250 ML IV.SOLN 14.22 UNIT IVCONT (03:57)
== END 2025-01-17 05:01 | disposition short-term general hospital (02) | DRG 871 ==
LOC: HO.ED 19:57 → HO.EDOVER 22:19 → HO.IMC 01-15 12:11
PROVIDERS: Physician Assistant Medical; Admitting Provider Internal Medicine; Emergency Provider Student in an Organized Health Care Education/Training Program; PCP Nurse Practitioner Family; Visit Provider Student in an Organized Health Care Education/Training Program
DX: A41.9 Sepsis, unspecified organism (principal); I21.A1 Myocardial infarction type 2; N17.9 Acute kidney failure, unspecified; N39.0 Urinary tract infection, site not specified; H10.11 Acute atopic conjunctivitis, right eye; G47.33 Obstructive sleep apnea (adult) (pediatric); B00.9 Herpesviral infection, unspecified; F39 Unspecified mood [affective] disorder; E11.9 Type 2 diabetes mellitus without complications; N40.1 Benign prostatic hyperplasia with lower urinary tract symptoms; R33.8 Other retention of urine; E78.5 Hyperlipidemia, unspecified; Z20.822 Contact with and (suspected) exposure to COVID-19; Z79.4 Long term (current) use of insulin; Z79.899 Other long term (current) drug therapy
CPT/HCPCS: 36415; 71045; 71275; 74177; 80048; 80053; 81001; 81003; 82803; 82947; 83036; 83605; 83735; 84484; 85007; 85025; 85027; 85610; 85730; 87040; 87077; 87086; 87088; 87186; 87205; 87502; 87635; 93005; 93306; 94660; 99285; J0696; J1644; J1720; J2543; J3373; Q9957; Q9967

== ENCOUNTER → 2025-01-14 18:36 | Outpatient (BNV) | payer MEDICARE, MEDICAID, SELFPAY | PROVIDERS: Emergency Provider Student in an Organized Health Care Education/Training Program; PCP Nurse Practitioner Family; Visit Provider Radiology Neuroradiology | DX: R06.02 Shortness of breath (principal) | CPT/HCPCS: 71045 ==

== ENCOUNTER 2025-01-14 22:03 | Outpatient (BNV) | payer OTHER, SELFPAY | END 2025-01-15 07:00 | PROVIDERS: Admitting Provider Internal Medicine; Emergency Provider Student in an Organized Health Care Education/Training Program; PCP Nurse Practitioner Family; Visit Provider Internal Medicine | DX: I51.89 Other ill-defined heart diseases (principal); R94.31 Abnormal electrocardiogram [ECG] [EKG]; R55 Syncope and collapse; R79.89 Other specified abnormal findings of blood chemistry | CPT/HCPCS: 93010; 93306 ==

== ENCOUNTER 2025-01-14 22:03 | Outpatient (BNV) | payer MEDICARE, MEDICAID, SELFPAY | END 2025-01-15 00:30 | PROVIDERS: Admitting Provider Internal Medicine; Emergency Provider Student in an Organized Health Care Education/Training Program; PCP Nurse Practitioner Family; Visit Provider Radiology Neuroradiology | DX: N32.89 Other specified disorders of bladder (principal); K56.41 Fecal impaction; J90 Pleural effusion, not elsewhere classified | CPT/HCPCS: 71275; 74177 ==

== ENCOUNTER → 2025-01-14 22:03 | Outpatient (BNV) | payer OTHER, SELFPAY | PROVIDERS: Admitting Provider Internal Medicine; Emergency Provider Student in an Organized Health Care Education/Training Program; PCP Nurse Practitioner Family; Visit Provider Student in an Organized Health Care Education/Training Program | DX: I21.4 Non-ST elevation (NSTEMI) myocardial infarction (principal); A41.9 Sepsis, unspecified organism; N39.0 Urinary tract infection, site not specified | CPT/HCPCS: 99233 ==

== ENCOUNTER → 2025-01-14 22:03 | Outpatient (BNV) | payer OTHER, SELFPAY | PROVIDERS: Admitting Provider Internal Medicine; Emergency Provider Student in an Organized Health Care Education/Training Program; PCP Nurse Practitioner Family; Visit Provider Internal Medicine | DX: I21.4 Non-ST elevation (NSTEMI) myocardial infarction (principal) | CPT/HCPCS: 93010; 99223; 99233 ==

== ENCOUNTER → 2025-01-17 23:59 | Outpatient (BNV) | payer OTHER, SELFPAY | PROVIDERS: PCP Nurse Practitioner Family; Visit Provider Internal Medicine Cardiovascular Disease | DX: I21.4 Non-ST elevation (NSTEMI) myocardial infarction (principal) | CPT/HCPCS: 93458; 93571; 99152 ==